=== PATIENT | male | born 1985 | race Caucasian/White ===

== ENCOUNTER 2016-05-21 16:46 | Emergency (ER) | payer SELFPAY ==
[~2016-05-21] VITALS: Ht 190.5 cm; Wt 136.1 kg
[2016-05-21] MEDS ORDERED: PARO-49 PO (16:58)
[2016-05-21] MEDS ORDERED: LTH450TCR PO (16:58)
[2016-05-21] MEDS ORDERED: NS IV 1000 ML 1,000 ML IV SCH (17:00)
[2016-05-21] MEDS ORDERED: KETOROLAC 30 MG/ML VIAL IVP ONE (17:00)
--- NOTE | 2016-05-21 17:02 | ED Back Pain ---
General Chief Complaint: Back Problems Stated Complaint: BACK PAIN Nursing Triage Note: LEFT SIDED MID BACK PAIN STARTING AT 0900 TODAY. HX OF KIDNEY STONES. Nursing Sepsis Screen: No Definite Risk Source of Information: Patient Exam Limitations: No Limitations History of Present Illness Time Seen by Provider: 17:01 Initial Comments to ER with left flank pain since this morning. Pain is in the left posterior flank and wraps around the left anterior lower abdomen. He has a history of kidney stones and this feels similar. No nausea or vomiting. No dysuria. No fevers or chills. Patient is formerly from [facility] and recently moved to [place]. Last kidney stone was in 2009. Timing/Duration: 12-24 Hours Severity: Moderate Associated Symptoms: denies symptoms Allergies and Home Medications Allergies Coded Allergies: No Known Drug Allergies (Unverified , 05/21/16) Home Medications [place] Carbonate 450 Mg Tab, 450 MG PO TID, (Reported) Paroxetine HCl 20 Mg Tablet, 20 MG PO DAILY, (Reported) Constitutional: see HPI, No chills, No fever EENTM: see HPI Respiratory: no symptoms reported Cardiovascular: no symptoms reported Genitourinary: no symptoms reported Musculoskeletal: no symptoms reported Skin: no symptoms reported Psychiatric/Neurological: No Symptoms Reported Past Kuvlpic-Zmzlpj-Cwgvih Hx Patient Social History Recent Foreign Travel: No Contact w/Someone Who Travel: No Recent Infectious Disease Expo: No Recent Hopitalizations: No Surgeries HX Surgeries: Yes Surgeries: Orthopedic Respiratory Hx Respiratory Disorders: No Cardiovascular Hx Cardiac Disorders: No Neurological Hx Neurological Disorders: No Reproductive System Hx Reproductive Disorders: No Genitourinary Hx Genitourinary Disorders: No Gastrointestinal Hx Gastrointestinal Disorders: No Musculoskeletal Hx Musculoskeletal Disorders: No HEENT HX ENT Disorders: No Cancer Hx Cancer: No Psychosocial Hx Psychiatric Problems: Yes Behavioral Health Disorders: Depression Physical Exam Vital Signs Vital Sign - Last 12Hours 05/21/16 16:50 Temp 98.0 Pulse 80 Resp 16 B/P (MAP) 144/84 Pulse Ox 96 Capillary Refill : Less Than 3 Seconds General Appearance: No Apparent Distress, WD/WN HEENT: PERRL/EOMI, TMs Normal Neck: Full Range of Motion, Normal Inspection Cardiovascular: Regular Rate, Rhythm, Normal Peripheral Pulses Respiratory: Normal Breath Sounds, No Accessory Muscle Use, No Respiratory Distress Gastrointestinal: Non Tender, Soft Extremity: Normal Capillary Refill, Normal Inspection Neurologic/Psychiatric: Alert, Oriented x3 Skin: Normal Color, Warm/Dry Progress/Results/Core Measures Results/Orders Lab Results Laboratory Tests Test 05/21/16 17:00 05/21/16 17:42 Range/Units White Blood Count 12.1 H 4.3-11.0 10^3/uL Red Blood Count 5.44 4.35-5.85 10^6/uL Hemoglobin 16.3 13.3-17.7 G/DL Hematocrit 49 40-54 % Mean Corpuscular Volume 89 80-99 FL Mean Corpuscular Hemoglobin 30 25-34 PG Mean Corpuscular Hemoglobin Concent 34 32-36 G/DL Red Cell Distribution Width 14.2 10.0-14.5 % Platelet Count 248 130-400 10^3/uL Mean Platelet Volume 10.6 H 7.4-10.4 FL Neutrophils (%) (Auto) 48 42-75 % Lymphocytes (%) (Auto) 38 12-44 % Monocytes (%) (Auto) 9 0-12 % Eosinophils (%) (Auto) 6 0-10 % Basophils (%) (Auto) 0 0-10 % Neutrophils # (Auto) 5.8 1.8-7.8 X 10^3 Lymphocytes # (Auto) 4.6 H 1.0-4.0 X 10^3 Monocytes # (Auto) 1.1 H 0.0-1.0 X 10^3 Eosinophils # (Auto) 0.7 H 0.0-0.3 10^3/uL Basophils # (Auto) 0.1 0.0-0.1 10^3/uL Sodium Level 141 135-145 MMOL/L Potassium Level 4.3 3.6-5.0 MMOL/L Chloride Level 108 H 98-107 MMOL/L Carbon Dioxide Level 22 21-32 MMOL/L Anion Gap 11 5-14 MMOL/L Blood Urea Nitrogen 10 7-18 MG/DL Creatinine 0.93 0.60-1.30 MG/DL Estimat Glomerular Filtration Rate > 60 BUN/Creatinine Ratio 11 Glucose Level 107 H 70-105 MG/DL Calcium Level 9.5 8.5-10.1 MG/DL Urine Color YELLOW Urine Clarity SLIGHTLY CLOUDY Urine pH 8 5-9 Urine Specific [place] 1.015 L 1.016-1.022 Urine Protein NEGATIVE NEGATIVE Urine Glucose (UA) NEGATIVE NEGATIVE Urine Ketones NEGATIVE NEGATIVE Urine Nitrite NEGATIVE NEGATIVE Urine Bilirubin NEGATIVE NEGATIVE Urine Urobilinogen NORMAL NORMAL MG/DL Urine Leukocyte Esterase 1+ H NEGATIVE Urine RBC (Auto) NEGATIVE NEGATIVE Urine RBC NONE /HPF Urine WBC NONE /HPF Urine Squamous Epithelial Cells NONE /HPF Urine Crystals NONE /LPF Urine Amorphous Sediment LARGE GINNY PHOSPHATE H /LPF Urine Bacteria NEGATIVE /HPF Urine Casts NONE /LPF Urine Mucus NEGATIVE /LPF Urine Culture Indicated NO Urine Opiates Screen NEGATIVE NEGATIVE Urine Oxycodone Screen NEGATIVE NEGATIVE Urine Methadone Screen NEGATIVE NEGATIVE Urine Propoxyphene Screen NEGATIVE NEGATIVE Urine Barbiturates Screen POSITIVE H NEGATIVE Ur Tricyclic Antidepressants Screen NEGATIVE NEGATIVE Urine Phencyclidine Screen NEGATIVE NEGATIVE Urine Amphetamines Screen NEGATIVE NEGATIVE Urine Methamphetamines Screen NEGATIVE NEGATIVE Urine Benzodiazepines Screen NEGATIVE NEGATIVE Urine Cocaine Screen NEGATIVE NEGATIVE Urine Cannabinoids Screen POSITIVE H NEGATIVE My Orders Orders - DELMY HOWARD APRN Ua Culture If Indicated (05/21/16 17:00) Cbc With Automated Diff (05/21/16 17:00) Saline Lock/Iv-Start (05/21/16 17:00) Basic Metabolic Panel (05/21/16 17:00) Ct Abd/Pelvis Wo(Kidney Stone) (05/21/16 17:00) Ns Iv 1000 Ml (Sodium Chloride 0.9%) (05/21/16 17:00) Ketorolac Injection (Toradol Injection) (05/21/16 17:00) Orphenadrine Injection (Norflex Injectio (05/21/16 17:45) Drug Screen Stat (Urine) (05/21/16 17:44) Medications Given in ED Current Medications Medications Dose Ordered Sig/Marquita Route Start Time Stop Time Status Last Admin Dose Admin Ketorolac Tromethamine 30 mg ONCE ONCE IVP 05/21/16 17:00 05/21/16 17:01 DC 05/21/16 17:14 30 MG Orphenadrine Citrate 60 mg ONCE ONCE IV 05/21/16 17:45 05/21/16 17:46 DC 05/21/16 17:49 60 MG Vital Signs/I&O Vital Sign - Last 12Hours 05/21/16 16:50 Temp 98.0 Pulse 80 Resp 16 B/P (MAP) 144/84 Pulse Ox 96 Blood Pressure Mean: 104 Diagnostic Imaging Diagonstic Imaging: Xray Comments NAME: MARC [facility] MED REC#: [id number] PT STATUS: REG ER : 1985 PHYSICIAN: DELMY HOWARD APRN ADMIT DATE: 05/21/16/ER Draft Date of Exam:05/21/16 CT ABD/PELVIS WO(KIDNEY STONE) PROCEDURE: CT urinary tract, rule out kidney stone. TECHNIQUE: Multiple contiguous axial images were obtained through the abdomen and pelvis without the use of intravenous contrast. DATE: May 21, 2016. COMPARISON: None. INDICATION: 30-year-old male, left lower back pain. FINDINGS: There are very mild linear opacities in the right middle lobe likely relating to mild atelectasis. The heart is not enlarged. There is no identified paracardial effusion. The liver is normal in size and contour. There are areas of relatively increased attenuation subjacent to the gallbladder fossa and ligamentum teres which likely relate to areas of relative focal fat sparing. The gallbladder is unremarkable in appearance. There is no intrahepatic or extrahepatic bile duct dilation. The main pancreatic duct is not abnormally dilated. The pancreatic parenchyma is unremarkable. The spleen is normal in size. The adrenal glands are unremarkable. There is a nonobstructing right renal stone, measuring 4 mm in size, on axial image 77. There is no identified ureteral stone. The urinary bladder is unremarkable in appearance. The intestinal tract is not distended. The appendix is best seen on axial image 109 and adjacent sequential images. There is no evidence of acute appendicitis. There is no free intraperitoneal air. There is no drainable fluid collection. There is no free pelvic fluid. There is no identified abnormally enlarged lymph node within the abdomen or pelvis specifically meeting CT size criteria for adenopathy. There are subcentimeter short axis retroperitoneal lymph nodes of unclear etiology or significance. There is a left hip prosthesis. There is no identified acute bony abnormality. IMPRESSION: CT abdomen and pelvis: 1. Nonobstructing right renal stone, measuring 4 mm in size. No ureteral stone or hydronephrosis. 2. No identified acute abnormality within the abdomen or pelvis. Dictated on workstation # [id number] Dict: 05/21/16 1718 Trans: 05/21/16 1726 [facility] [id number] Interpreted by: RADHA HERNANDEZ MD Electronically signed by: Departure Impression Impression: Primary Impression: Back strain Disposition: 01 HOME, SELF-CARE Condition: Stable Departure-Patient Inst. Decision time for Depature: 18:05 Referrals: SHIRIN CHIN (PCP/Family) Primary Care Physician Patient Instructions: Low Back Pain (DC) Add. Discharge Instructions: Follow-up with your doctor next week Return to ER for any worsening such as fevers or intolerable pain Medications as directed All discharge instructions reviewed with patient and/or family. Voiced understanding. Scripts Cyclobenzaprine HCl (Cyclobenzaprine HCl) 5 Mg Tablet 5 MG PO TID Y for PAIN-MILD TO MODERATE, #14 TAB Prov: DELMY HOWARD APRN 05/21/16 Naproxen (Naprosyn) 500 Mg Tablet 500 MG PO BID Y for PAIN-MODERATE, #30 TAB Prov: DELMY HOWARD APRN 05/21/16 DELMY HOWARD APRN May 21, 2016 17:02
[2016-05-21 17:09] LABS: BASOPHILS # (AUTO) 0.1 10^3/uL (0.0-0.1); BASOPHILS % (AUTO) 0 % (0-10); EOSINOPHILS # (AUTO) 0.7 10^3/uL (0.0-0.3); EOSINOPHILS % (AUTO) 6 % (0-10); LYMPHOCYTES # (AUTO) 4.6 X 10^3 (1.0-4.0); LYMPHOCYTES % (AUTO) 38 % (12-44); MEAN CORPUSCULAR HEMOGLOBIN 30 PG (25-34); MEAN CORPUSCULAR HGB CONC 34 G/DL (32-36); MEAN CORPUSCULAR VOLUME 89 FL (80-99); MEAN PLATELET VOLUME 10.6 FL (7.4-10.4); MONOCYTES # (AUTO) 1.1 X 10^3 (0.0-1.0); MONOCYTES % (AUTO) 9 % (0-12); NEUTROPHILS # (AUTO) 5.8 X 10^3 (1.8-7.8); NEUTROPHILS % (AUTO) 48 % (42-75); PLATELET COUNT 248 10^3/uL (130-400); RED BLOOD COUNT 5.44 10^6/uL (4.35-5.85); RED CELL DISTRIBUTION WIDTH 14.2 % (10.0-14.5); WHITE BLOOD COUNT 12.1 10^3/uL (4.3-11.0)
[2016-05-21 17:19] LABS: ANION GAP 11 MMOL/L (5-14); BLOOD UREA NITROGEN 10 MG/DL (7-18); BUN/CREATININE RATIO 11; CALCIUM 9.5 MG/DL (8.5-10.1); CARBON DIOXIDE 22 MMOL/L (21-32); CHLORIDE 108 MMOL/L (98-107); CREATININE SERUM 0.93 MG/DL (0.60-1.30); GFR ESTIMATED > 60; GLUCOSE 107 MG/DL (70-105); POTASSIUM 4.3 MMOL/L (3.6-5.0); SODIUM 141 MMOL/L (135-145)
--- NOTE | 2016-05-21 17:26 | Diagnostic Imaging Report ---
PROCEDURE: CT urinary tract, rule out kidney stone. TECHNIQUE: Multiple contiguous axial images were obtained through the abdomen and pelvis without the use of intravenous contrast. DATE: May 21, 2016. COMPARISON: None. INDICATION: 30-year-old male, left lower back pain. FINDINGS: There are very mild linear opacities in the right middle lobe likely relating to mild atelectasis. The heart is not enlarged. There is no identified paracardial effusion. The liver is normal in size and contour. There are areas of relatively increased attenuation subjacent to the gallbladder fossa and ligamentum teres which likely relate to areas of relative focal fat sparing. The gallbladder is unremarkable in appearance. There is no intrahepatic or extrahepatic bile duct dilation. The main pancreatic duct is not abnormally dilated. The pancreatic parenchyma is unremarkable. The spleen is normal in size. The adrenal glands are unremarkable. There is a nonobstructing right renal stone, measuring 4 mm in size, on axial image 77. There is no identified ureteral stone. The urinary bladder is unremarkable in appearance. The intestinal tract is not distended. The appendix is best seen on axial image 109 and adjacent sequential images. There is no evidence of acute appendicitis. There is no free intraperitoneal air. There is no drainable fluid collection. There is no free pelvic fluid. There is no identified abnormally enlarged lymph node within the abdomen or pelvis specifically meeting CT size criteria for adenopathy. There are subcentimeter short axis retroperitoneal lymph nodes of unclear etiology or significance. There is a left hip prosthesis. There is no identified acute bony abnormality. IMPRESSION: CT abdomen and pelvis: 1. Nonobstructing right renal stone, measuring 4 mm in size. No ureteral stone or hydronephrosis. 2. No identified acute abnormality within the abdomen or pelvis. Dictated by: Dictated on workstation # [id number]
[2016-05-21] MEDS ORDERED: ORPHENADRINE 60 MG/2 ML (NORFLEX) AMP IV ONE (17:45)
[2016-05-21 17:50] LABS: BILIRUBIN,URINE NEGATIVE (NEGATIVE); KETONES,URINE NEGATIVE (NEGATIVE); LEUKOCYTE ESTERASE ,URINE 1+ (NEGATIVE); NITRITE,URINE NEGATIVE (NEGATIVE); PH,URINE 8 (5-9); PROTEIN,URINE NEGATIVE (NEGATIVE); UROBILINOGEN,URINE NORMAL (NORMAL)
[2016-05-21] MEDS ORDERED: CYCL5TAB PO (18:06)
[2016-05-21] MEDS ORDERED: NAPR500T PO (18:06)
[2016-05-21 18:10] VITALS: BP 144/84
== END 2016-05-21 18:10 | disposition home or self-care (01) ==
LOC: ER 16:49
DX: S39.012A Strain of muscle, fascia and tendon of lower back, initial encounter (principal); N20.0 Calculus of kidney; Z96.642 Presence of left artificial hip joint; X58.XXXA Exposure to other specified factors, initial encounter; Y99.8 Other external cause status
CPT/HCPCS: 36415; 74176; 80048; 80306; 81000; 85025; 96361; 96374; 96375

== ENCOUNTER 2020-04-10 19:33 | Emergency (ER) | payer SELFPAY ==
[~2020-04-10] VITALS: Ht 195.6 cm; Wt 149.7 kg
[~2020-04-10 19:33] MED LIST: CYCL5TAB PO; LTH450TCR PO; NAPR-1071 PO; PARO-49 PO
[2020-04-10 19:54] VITALS: BP 147/91
[2020-04-10] MEDS ORDERED: oxyCODONE/APAP 5/325MG (PERCOCET 5) TABLET PO ONE (20:15)
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
== END 2020-04-10 20:40 | disposition home or self-care (01) ==
LOC: EDUNIT# 19:33 → ER FS 19:34
DX: G89.29 Other chronic pain (principal); F17.210 Nicotine dependence, cigarettes, uncomplicated; F32.9 Major depressive disorder, single episode, unspecified
CPT/HCPCS: 99283

== ENCOUNTER 2020-06-11 01:17 | Emergency (ER) | payer SELFPAY ==
[~2020-06-11] VITALS: Ht 195.6 cm; Wt 141.9 kg
[2020-06-11] MEDS ORDERED: fentaNYL INJ 100 MCG/2 ML AMP IVP ONE (01:45)
[2020-06-11] MEDS ORDERED: KETOROLAC 30 MG/ML VIAL IVP ONE (01:45)
[2020-06-11] MEDS ORDERED: ONDANSETRON 4 MG/2 ML (SDV) Z0FRAN IVP ONE (01:45)
[2020-06-11] MEDS ORDERED: NS IV 1000 ML 1,000 ML IV SCH (01:45)
[2020-06-11 01:56] LABS: BASOPHILS % (AUTO) 0 % (0-10); EOSINOPHILS % (AUTO) 3 % (0-10); HEMATOCRIT 44 % (40-54); LYMPHOCYTES % (AUTO) 29 % (12-44); MEAN CORPUSCULAR HEMOGLOBIN 31 PG (25-34); MEAN CORPUSCULAR HGB CONC 34 G/DL (32-36); MEAN CORPUSCULAR VOLUME 91 FL (80-99); MEAN PLATELET VOLUME 10.4 FL (7.4-10.4); MONOCYTES % (AUTO) 7 % (0-12); NEUTROPHILS # (AUTO) 7.3 X 10^3 (1.8-7.8); NEUTROPHILS % (AUTO) 61 % (42-75); PLATELET COUNT 266 10^3/uL (130-400); WHITE BLOOD COUNT 11.9 10^3/uL (4.3-11.0)
[2020-06-11 01:57] LABS: BASOPHILS # (AUTO) 0.1 10^3/uL (0.0-0.1); EOSINOPHILS # (AUTO) 0.3 10^3/uL (0.0-0.3); LYMPHOCYTES # (AUTO) 3.5 X 10^3 (1.0-4.0); MONOCYTES # (AUTO) 0.8 X 10^3 (0.0-1.0)
[2020-06-11 02:14] LABS: ALANINE AMINOTRANSFERASE 51 U/L (0-55); ALBUMIN 4.6 GM/DL (3.2-4.5); ALKALINE PHOSPHATASE 117 U/L (40-136); BILIRUBIN,TOTAL 0.2 MG/DL (0.1-1.0); BUN/CREATININE RATIO 15; CALCIUM 9.8 MG/DL (8.5-10.1); CARBON DIOXIDE 20 MMOL/L (21-32); CHLORIDE 102 MMOL/L (98-107); CREATININE SERUM 0.72 MG/DL (0.60-1.30); GFR ESTIMATED > 60; GLUCOSE 139 MG/DL (70-105); POTASSIUM 3.9 MMOL/L (3.6-5.0); SODIUM 137 MMOL/L (135-145); TOTAL PROTEIN 7.6 GM/DL (6.4-8.2)
[2020-06-11 02:15] LABS: BACTERIA,URINE NEGATIVE /HPF; BILIRUBIN,URINE NEGATIVE (NEGATIVE); CLARITY,URINE CLEAR; COLOR,URINE YELLOW; GLUCOSE, URINE (UA) NEGATIVE (NEGATIVE); KETONES,URINE NEGATIVE (NEGATIVE); LEUKOCYTE ESTERASE ,URINE NEGATIVE (NEGATIVE); NITRITE,URINE NEGATIVE (NEGATIVE); PROTEIN,URINE NEGATIVE (NEGATIVE); RBC,URINE 25-50 /HPF; RENAL EPITHELIAL CELLS,URINE 0-2 /HPF
[2020-06-11] MEDS ORDERED: ONDA4TAB11 PO (02:30)
[2020-06-11] MEDS ORDERED: OXYC1TAB87 PO (02:30)
[2020-06-11] MEDS ORDERED: TMSL.4C PO (02:30)
--- NOTE | 2020-06-11 02:30 | ED General ---
General Chief Complaint: Abdominal/GI Problems Stated Complaint: POSS KIDNEY STONES Nursing Triage Note: Pt states hx of kidney stones, thinks he has another one, pain to left flank area Nursing Sepsis Screen: No Definite Risk Source of Information: Patient History of Present Illness Date Seen by Provider: June 11, 2020 Time Seen by Provider: 01:20 Initial Comments Patient is a 34-year-old male with history of kidney stones who presents with acute left sided flank pain starting several hours prior to ED arrival radiating to left lower quadrant. Pain is continuous, waxes and wane and described as moderate to severe. It is dull, nonmigratory and does not worsen with position change or movement. It is not relieved with rest. Reports nausea without vomiting. No fever chills or sweats. No urinary frequency urgency or burning. No constipation or diarrhea. No other acute symptoms or complaints. Timing/Duration: 4-6 Hours Severity: Severe Modifying Factors: improves with Other Associated Systoms: Other Allergies and Home Medications Allergies Coded Allergies: No Known Drug Allergies (Unverified , 05/21/16) Home Medications Cyclobenzaprine HCl 5 Mg Tablet, 5 MG PO TID PRN for PAIN-MILD TO MODERATE Prescribed by: DELMY HOWARD on 05/21/16 1806 [place] Carbonate 450 Mg Tab, 450 MG PO TID, (Reported) Naproxen 500 Mg Tablet, 500 MG PO BID PRN for PAIN-MODERATE Prescribed by: DELMY HOWARD on 05/21/16 1806 Paroxetine HCl 20 Mg Tablet, 20 MG PO DAILY, (Reported) Patient Home Medication List Home Medication List Reviewed: Yes Review of Systems Review of Systems Constitutional: see HPI EENTM: see HPI Respiratory: see HPI Cardiovascular: see HPI Gastrointestinal: see HPI Genitourinary: see HPI Musculoskeletal: see HPI Skin: see HPI Hematologic/Lymphatic: See HPI Immunological/Allergic: see HPI All Other Systems Reviewed Negative Unless Noted: Yes Past Wkoovjn-Ajmuab-Goccve Hx Past Med/Social Hx: Reviewed Nursing Past Med/Soc Hx Patient Social History Alcohol Use: Denies Use Drug of Choice: POT Type Used: Cigarettes 2nd Hand Smoke Exposure: No Recent Infectious Disease Expo: No Recent Hopitalizations: No Seasonal Allergies Seasonal Allergies: No Past Medical History Surgeries: Yes (LEFT HIP REPLACEMENT) Orthopedic Respiratory: No Cardiac: Yes Hypertension Neurological: No Reproductive Disorders: No Genitourinary: Yes Kidney Stones Gastrointestinal: No Musculoskeletal: Yes (LEFT HIP) Endocrine: No HEENT: No Cancer: No Psychosocial: Yes Depression Physical Exam Vital Signs Vital Signs - First Documented 06/11/20 01:28 Temp 36.3 Pulse 108 Resp 16 B/P (MAP) 187/104 (131) Pulse Ox 99 O2 Delivery Room Air Capillary Refill : Less Than 3 Seconds Height, Weight, BMI Height: 6'3.00" Weight: 300lbs. oz. 136.503730bf; 37.00 BMI Method:Stated General Appearance: Anxious, Moderate Distress Eyes: Bilateral Eye Normal Inspection, Bilateral Eye PERRL HEENT: PERRL/EOMI, Moist Mucous Membranes Neck: Full Range of Motion, Supple Respiratory: Lungs Clear Cardiovascular: Regular Rate, Rhythm Gastrointestinal: Soft Back: CVA Tenderness (L) Extremity: Normal Capillary Refill, Non Tender, No Calf Tenderness Neurologic/Psychiatric: Alert, Oriented x3, No Motor/Sensory Deficits Skin: Normal Color Lymphatic: No Adenopathy Focused Exam Sepsis Stage: Ruled Out Progress/Results/Core Measures Suspected Sepsis Recent Fever Within 48 Hours: No Infection Criteria Present: None New/Unexplained Altered Menta: No Sepsis Screen: No Definite Risk SIRS Temperature: Pulse: 108 Respiratory Rate: 16 Laboratory Tests 06/11/20 01:50: White Blood Count 11.9H Blood Pressure 187 /104 Mean: 131 Laboratory Tests 06/11/20 01:50: Creatinine 0.72, Platelet Count 266, Total Bilirubin 0.2 Results/Orders Lab Results Laboratory Tests Test 06/11/20 01:50 06/11/20 02:05 Range/Units White Blood Count 11.9 H 4.3-11.0 10^3/uL Red Blood Count 4.86 4.35-5.85 10^6/uL Hemoglobin 15.0 13.3-17.7 G/DL Hematocrit 44 40-54 % Mean Corpuscular Volume 91 80-99 FL Mean Corpuscular Hemoglobin 31 25-34 PG Mean Corpuscular Hemoglobin Concent 34 32-36 G/DL Red Cell Distribution Width 13.1 10.0-14.5 % Platelet Count 266 130-400 10^3/uL Mean Platelet Volume 10.4 7.4-10.4 FL Immature Granulocyte % (Auto) 0 % Neutrophils (%) (Auto) 61 42-75 % Lymphocytes (%) (Auto) 29 12-44 % Monocytes (%) (Auto) 7 0-12 % Eosinophils (%) (Auto) 3 0-10 % Basophils (%) (Auto) 0 0-10 % Neutrophils # (Auto) 7.3 1.8-7.8 X 10^3 Lymphocytes # (Auto) 3.5 1.0-4.0 X 10^3 Monocytes # (Auto) 0.8 0.0-1.0 X 10^3 Eosinophils # (Auto) 0.3 0.0-0.3 10^3/uL Basophils # (Auto) 0.1 0.0-0.1 10^3/uL Immature Granulocyte # (Auto) 0.0 0.0-0.1 10^3/uL Sodium Level 137 135-145 MMOL/L Potassium Level 3.9 3.6-5.0 MMOL/L Chloride Level 102 98-107 MMOL/L Carbon Dioxide Level 20 L 21-32 MMOL/L Anion Gap 15 H 5-14 MMOL/L Blood Urea Nitrogen 11 7-18 MG/DL Creatinine 0.72 0.60-1.30 MG/DL Estimat Glomerular Filtration Rate > 60 BUN/Creatinine Ratio 15 Glucose Level 139 H 70-105 MG/DL Calcium Level 9.8 8.5-10.1 MG/DL Corrected Calcium 8.5-10.1 MG/DL Total Bilirubin 0.2 0.1-1.0 MG/DL Aspartate Amino Transf (AST/SGOT) 28 5-34 U/L Alanine Aminotransferase (ALT/SGPT) 51 0-55 U/L Alkaline Phosphatase 117 40-136 U/L Total Protein 7.6 6.4-8.2 GM/DL Albumin 4.6 H 3.2-4.5 GM/DL Urine Color YELLOW Urine Clarity CLEAR Urine pH 6.0 5-9 Urine Specific [place] 1.020 1.016-1.022 Urine Protein NEGATIVE NEGATIVE Urine Glucose (UA) NEGATIVE NEGATIVE Urine Ketones NEGATIVE NEGATIVE Urine Nitrite NEGATIVE NEGATIVE Urine Bilirubin NEGATIVE NEGATIVE Urine Urobilinogen 0.2 < = 1.0 MG/DL Urine Leukocyte Esterase NEGATIVE NEGATIVE Urine RBC (Auto) 1+ H NEGATIVE Urine RBC 25-50 H /HPF Urine WBC NONE /HPF Urine Squamous Epithelial Cells NONE /HPF Urine Renal Epithelial Cells 0-2 /HPF Urine Crystals NONE /LPF Urine Bacteria NEGATIVE /HPF Urine Casts PRESENT /LPF Urine Hyaline Casts 2-5 H /LPF Urine Coarse Granular Casts 0-2 H /LPF Urine Mucus NEGATIVE /LPF Urine Culture Indicated NO My Orders Orders - SMITHA TOVAR DO Cbc With Automated Diff (06/11/20 01:31) Comprehensive Metabolic Panel (06/11/20 01:31) Ua Culture If Indicated (06/11/20 01:31) Ct Abdomen/Pelvis Wo (06/11/20 01:31) Fentanyl Inj (Sublimaze Injection) (06/11/20 01:45) Ondansetron Injection (Zofran Injectio (06/11/20 01:45) Ketorolac Injection (Toradol Injection) (06/11/20 01:45) Ns Iv 1000 Ml (Sodium Chloride 0.9%) (06/11/20 01:45) Medications Given in ED Current Medications Medications Dose Ordered Sig/Marquita Route Start Time Stop Time Status Last Admin Dose Admin Fentanyl Citrate 100 mcg ONCE ONCE IVP 06/11/20 01:45 06/11/20 01:46 DC 06/11/20 01:53 100 MCG Ketorolac Tromethamine 30 mg ONCE ONCE IVP 06/11/20 01:45 06/11/20 01:46 DC 06/11/20 01:53 30 MG Ondansetron HCl 4 mg ONCE ONCE IVP 06/11/20 01:45 06/11/20 01:46 DC 06/11/20 01:53 4 MG Vital Signs/I&O 06/11/20 01:28 Temp 36.3 Pulse 108 Resp 16 B/P (MAP) 187/104 (131) Pulse Ox 99 O2 Delivery Room Air Capillary Refill : Less Than 3 Seconds Blood Pressure Mean: 131 Departure Communication (Admissions) CT abdomen pelvis without contrast. 4 mm left UPJ stone with mild hydronephrosis. Imaging and lab reviewed. Repeat pain medication given. Significant improvem ent with treatment. We will continue supportive care with follow-up with the urologist. Return precautions reviewed. Impression Primary Impression: Acute left flank pain Additional Impression: Ureterolithiasis Disposition: HOME, SELF-CARE Condition: Stable Departure-Patient Inst. Decision time for Depature: 02:28 Referrals: SHIRIN CHIN (PCP/Family) Primary Care Physician Patient Instructions: Kidney Stones (DC) Add. Discharge Instructions: Please increase fluids and take newly prescribed medications as directed. Strain your urine for passage of stone. Follow-up with your PCP and local urologist in 3 to 5 days for reevaluation. Return to the ED if new or worsening symptoms. All discharge instructions reviewed with patient and/or family. Voiced understanding. Scripts Ondansetron (Ondansetron Odt) 4 Mg Tab.rapdis 4 MG PO Q6H, #10 TAB Prov: SMITHA TOVAR DO 06/11/20 Tamsulosin HCl (Flomax) 0.4 Mg Cap 0.4 MG PO Q6H for 10 Days, CAP Prov: SMITHA TOVAR DO 06/11/20 Oxycodone HCl/Acetaminophen (Percocet 5-325 mg Tablet) 1 Each Tablet 1 TAB PO Q4H for PAIN-MODERATE MDD 6 TABS for 7 Days, #10 TAB Prov: SMITHA TOVAR DO 06/11/20 SMIHTA TOVAR DO June 11, 2020 02:30
[2020-06-11] MEDS ORDERED: morphine INJ 10 MG/ML 1ML (SYR OR VIAL) IVP STA (02:31)
[2020-06-11] MEDS ORDERED: RX-ONDANSETRON 4 MG ODT (ZOFRAN) PPK #4 PO STA (02:32)
[2020-06-11 02:41] VITALS: BP 157/113
[2020-06-11] MEDS ORDERED: RX-OXYCODONE/APAP 5-325 MG #4 TAB PK PO PRN (02:45)
--- NOTE | 2020-06-11 06:56 | Diagnostic Imaging Report ---
EXAM: CT abdomen and pelvis without intravenous contrast. All CT scans use one or more of the following dose optimizing techniques: automated exposure control, MA and/or KvP adjustment based on patient size and exam type or iterative reconstruction. INDICATION: Left flank pain. History of kidney stones. Comparison with 05/21/2016. FINDINGS: There is a 7 mm calculus lower pole calyx of the left kidney. There is also an obstructive calculus in the proximal left ureter measuring 4 mm. There is moderate hydronephrosis of the left kidney. The left distal ureter is decompressed. Right kidney and ureter appear normal. There is no perinephric fluid. The lung bases are clear. Liver, gallbladder, and bile ducts are normal. Pancreas and spleen are normal. There is a 1.6 cm fatty lesion in the left adrenal gland. Bowel gas pattern normal. No free air or free fluid. IMPRESSION: 1. There is a 4 mm obstructive stone in the proximal left ureter causing moderate hydronephrosis. Additional calculus in the lower pole calyx on the left measuring 7 mm. 2. Incidentally noted is a 1.6 cm fatty lesion in the left adrenal gland likely representing adrenal adenoma. These findings are concordant with the preliminary report. Dictated by: Dictated on workstation # [id number]
== END 2020-06-11 02:41 | disposition home or self-care (01) ==
LOC: EDUNIT# 01:17 → ER FS 01:20
DX: N13.2 Hydronephrosis with renal and ureteral calculous obstruction (principal); I10 Essential (primary) hypertension; F32.9 Major depressive disorder, single episode, unspecified; Z79.899 Other long term (current) drug therapy
CPT/HCPCS: 36415; 74176; 80053; 81000; 85025

== ENCOUNTER 2020-06-18 16:02 | Emergency (ER) | payer SELFPAY ==
[~2020-06-18] VITALS: Ht 193 cm; Wt 139.0 kg
[~2020-06-18 16:02] MED LIST changes: +ONDA4TAB11 PO; +OXYC1TAB87 PO; +TMSL.4C PO
[2020-06-18 16:06] VITALS: BP 144/97
[2020-06-18] MEDS ORDERED: morphine INJ 10 MG/ML 1ML (SYR OR VIAL) IVP STA (16:11)
[2020-06-18] MEDS ORDERED: ONDANSETRON 4 MG/2 ML (SDV) Z0FRAN IVP ONE (16:15)
[2020-06-18] MEDS ORDERED: KETOROLAC 30 MG/ML VIAL IVP ONE (16:15)
[2020-06-18 16:51] LABS: BASOPHILS % (AUTO) 0 % (0-10); EOSINOPHILS % (AUTO) 1 % (0-10); HEMATOCRIT 47 % (40-54); HEMOGLOBIN 15.6 G/DL (13.3-17.7); LYMPHOCYTES % (AUTO) 21 % (12-44); MEAN CORPUSCULAR HEMOGLOBIN 32 PG (25-34); MEAN CORPUSCULAR HGB CONC 33 G/DL (32-36); MEAN CORPUSCULAR VOLUME 96 FL (80-99); MEAN PLATELET VOLUME 11.3 FL (7.4-10.4); MONOCYTES % (AUTO) 7 % (0-12); NEUTROPHILS # (AUTO) 7.5 X 10^3 (1.8-7.8); NEUTROPHILS % (AUTO) 71 % (42-75); PLATELET COUNT 221 10^3/uL (130-400); WHITE BLOOD COUNT 10.7 10^3/uL (4.3-11.0)
[2020-06-18 16:52] LABS: EOSINOPHILS # (AUTO) 0.2 10^3/uL (0.0-0.3); LYMPHOCYTES # (AUTO) 2.3 X 10^3 (1.0-4.0); MONOCYTES # (AUTO) 0.7 X 10^3 (0.0-1.0)
--- NOTE | 2020-06-18 16:54 | Diagnostic Imaging Report ---
PROCEDURE: CT abdomen and pelvis without contrast. TECHNIQUE: Multiple contiguous axial images were obtained through the abdomen and pelvis without the use of intravenous contrast. Auto Exposure Controls were utilized during the CT exam to meet ALARA standards for radiation dose reduction. INDICATION: Left abdominal pain. COMPARISON: 06/11/2020. FINDINGS: There is an approximately 0.3 cm subpleural nodule seen within the anterior right middle lobe with a similar nodule along the major fissure more posteriorly in the right lung. Low-density is seen throughout the liver indicating fatty infiltration. No focal gallbladder, pancreatic, right adrenal gland, or splenic abnormality is identified. A low density 1.5 cm nodule in the left adrenal gland likely represents an adenoma. Unenhanced images of the kidneys reveal several stones in the lower pole of the left kidney reaching 0.6 cm in size. There is no evidence of hydronephrosis. There is artifact in the pelvis from the left hip prosthesis; however, there does appear to be an approximately 0.3 cm calculus at the left ureterovesical junction which may protrude into the bladder lumen. The appendix has a normal appearance. There is no evidence of free fluid within the abdomen or pelvis. No pathologically enlarged adenopathy is seen. There is a moderate amount of stool within the rectum. IMPRESSION: Left nephrolithiasis with a 0.3 cm calculus at the left ureteropelvic junction. Note is also made of hepatic steatosis with several tiny nodules in the right lung base which could be related to previous granulomatous exposure. Correlation with other health risk factors would be useful. Dictated by: Dictated on workstation # [id number]
[2020-06-18 16:58] LABS: BUN/CREATININE RATIO 18; CALCIUM 9.9 MG/DL (8.5-10.1); CARBON DIOXIDE 23 MMOL/L (21-32); CHLORIDE 101 MMOL/L (98-107); CREATININE SERUM 0.76 MG/DL (0.60-1.30); GFR ESTIMATED > 60; GLUCOSE 93 MG/DL (70-105); POTASSIUM 5.5 MMOL/L (3.6-5.0); SODIUM 136 MMOL/L (135-145)
--- NOTE | 2020-06-18 17:08 | ED GU-Female ---
General Chief Complaint: - Urinary Stated Complaint: LT SIDE/LOWER BACK PAIN Nursing Triage Note: PT HERE FOR KIDNEY STONE THAT HE WAS SEEN FOR IN THE ED LAST WEEK. HE REPORTS HE HASNT FOLLOWED UP AND HADNT BEEN ABLE TO MAKE IT OUT OF TOWN TO THE DR. YET SO HE HAS RETURNED TO ER. Nursing Sepsis Screen: No Definite Risk Source: patient Exam Limitations: no limitations History of Present Illness Date Seen by Provider: June 18, 2020 Time Seen by Provider: 16:00 Initial Comments Patient is a 34-year-old male with history of kidney stones who was evaluated in this emergency department 1 week ago with left flank pain. Pain is dull aching nonradiating nonmigratory is continuous waxes and wanes and is rated moderate to severe. There are no palliative or provocative features. He was diagnosed with a kidney stone and was instructed to follow-up with his PCP and urologist. Patient is continue to take Flomax and pain medication but has had increased pain in the left groin this morning. Reports nausea without vomiting. No urinary frequency urgency burning dysuria or hematuria. No testicular pain or tenderness. Timing/Duration: other Severity/Quality: other Location: other Radiation: urethral Activities at Onset: other Sexual [place] History: other Modifying Factors: Improves With Other Associated Symptoms: other Allergies and Home Medications Allergies Coded Allergies: No Known Drug Allergies (Unverified , 05/21/16) Home Medications Cyclobenzaprine HCl 5 Mg Tablet, 5 MG PO TID PRN for PAIN-MILD TO MODERATE Prescribed by: DELMY HOWARD on 05/21/161805 [place] Carbonate 450 Mg Tab, 450 MG PO TID, (Reported) Naproxen 500 Mg Tablet, 500 MG PO BID PRN for PAIN-MODERATE Prescribed by: DELMY HOWARD on 05/21/161805 Ondansetron 4 Mg Tab.rapdis, 4 MG PO Q6H Prescribed by: SMITHA TOVAR on 06/11/20229 Oxycodone HCl/Acetaminophen 1 Each Tablet, 1 TAB PO Q4H Prescribed by: SMITHA TOVAR on 06/11/20229 Paroxetine HCl 20 Mg Tablet, 20 MG PO DAILY, (Reported) Tamsulosin HCl 0.4 Mg Cap, 0.4 MG PO Q6H Prescribed by: SMITHA TOVAR on 06/11/20229 Patient Home Medication List Home Medication List Reviewed: Yes Review of Systems Review of Systems Constitutional: see HPI EENTM: see HPI Respiratory: see HPI Cardiovascular: chest pain Gastrointestinal: see HPI Genitourinary: see HPI Musculoskeletal: see HPI Skin: see HPI Psychiatric/Neurological: See HPI Endocrine: See HPI Hematologic/Lymphatic: See HPI All Other Systemes Reviewed Negative Unless Noted: Yes Past Cvhknvk-Kcrxgs-Yroghf Hx Past Med/Social Hx: Reviewed Nursing Past Med/Soc Hx Patient Social History Alcohol Use: Denies Use Drug of Choice: POT Type Used: Cigarettes 2nd Hand Smoke Exposure: No Recent Infectious Disease Expo: No Recent Hopitalizations: No Seasonal Allergies Seasonal Allergies: No Past Medical History Surgeries: Yes (LEFT HIP REPLACEMENT) Orthopedic Respiratory: No Cardiac: Yes Hypertension Neurological: No Reproductive Disorders: No Genitourinary: Yes Kidney Stones Gastrointestinal: No Musculoskeletal: Yes (LEFT HIP) Endocrine: No HEENT: No Cancer: No Psychosocial: Yes Depression Physical Exam Vital Signs Vital Signs - First Documented 06/18/20 16:06 Temp 36.8 Pulse 103 Resp 20 B/P (MAP) 144/97 (113) Pulse Ox 100 O2 Delivery Room Air Capillary Refill : Less Than 3 Seconds Height, Weight, BMI Height: 6'3.00" Weight: 300lbs. oz. 136.114168lg; 37.00 BMI Method:Stated General Appearance: moderate distress HEENT: PERRL/EOMI, pharynx normal Neck: non-tender, full range of motion, supple Cardiovascular: normal peripheral pulses, regular rate, rhythm Respiratory: lungs clear Gastrointestinal: soft Back: normal inspection, no CVA tenderness, no vertebral tenderness Extremities: normal range of motion Neurologic/Psychiatric: alert, normal mood/affect, oriented x 3 Focused Exam Sepsis Stage: Ruled Out Progress/Results/Core Measures Suspected Sepsis Recent Fever Within 48 Hours: No Infection Criteria Present: None New/Unexplained Altered Menta: No Sepsis Screen: No Definite Risk SIRS Temperature: Pulse: 103 Respiratory Rate: 20 Laboratory Tests 06/18/20 16:28: White Blood Count 10.7 Blood Pressure 144 /97 Mean: 113 Laboratory Tests 06/18/20 16:28: Creatinine 0.76, Platelet Count 221 Results/Orders Lab Results Laboratory Tests Test 06/18/20 16:28 Range/Units White Blood Count 10.7 4.3-11.0 10^3/uL Red Blood Count 4.92 4.35-5.85 10^6/uL Hemoglobin 15.6 13.3-17.7 G/DL Hematocrit 47 40-54 % Mean Corpuscular Volume 96 80-99 FL Mean Corpuscular Hemoglobin 32 25-34 PG Mean Corpuscular Hemoglobin Concent 33 32-36 G/DL Red Cell Distribution Width 12.7 10.0-14.5 % Platelet Count 221 130-400 10^3/uL Mean Platelet Volume 11.3 H 7.4-10.4 FL Immature Granulocyte % (Auto) 0 % Neutrophils (%) (Auto) 71 42-75 % Lymphocytes (%) (Auto) 21 12-44 % Monocytes (%) (Auto) 7 0-12 % Eosinophils (%) (Auto) 1 0-10 % Basophils (%) (Auto) 0 0-10 % Neutrophils # (Auto) 7.5 1.8-7.8 X 10^3 Lymphocytes # (Auto) 2.3 1.0-4.0 X 10^3 Monocytes # (Auto) 0.7 0.0-1.0 X 10^3 Eosinophils # (Auto) 0.2 0.0-0.3 10^3/uL Basophils # (Auto) 0.0 0.0-0.1 10^3/uL Immature Granulocyte # (Auto) 0.0 0.0-0.1 10^3/uL Sodium Level 136 135-145 MMOL/L Potassium Level 5.5 H 3.6-5.0 MMOL/L Chloride Level 101 98-107 MMOL/L Carbon Dioxide Level 23 21-32 MMOL/L Anion Gap 12 5-14 MMOL/L Blood Urea Nitrogen 14 7-18 MG/DL Creatinine 0.76 0.60-1.30 MG/DL Estimat Glomerular Filtration Rate > 60 BUN/Creatinine Ratio 18 Glucose Level 93 70-105 MG/DL Calcium Level 9.9 8.5-10.1 MG/DL My Orders Orders - SMITHA TOVAR DO Cbc With Automated Diff (06/18/20 16:11) Basic Metabolic Panel (06/18/20 16:11) Urinalysis (06/18/20 16:11) Ct Abdomen/Pelvis Wo (06/18/20 16:11) Morphine Injection (Morphine Injection (06/18/20 16:11) Ondansetron Injection (Zofran Injectio (06/18/20 16:15) Ketorolac Injection (Toradol Injection) (06/18/20 16:15) Medications Given in ED Current Medications Medications Dose Ordered Sig/Maruqita Route Start Time Stop Time Status Last Admin Dose Admin Ketorolac Tromethamine 30 mg ONCE ONCE IVP 06/18/20 16:15 06/18/20 16:16 DC 06/18/20 16:18 30 MG Ondansetron HCl 4 mg ONCE ONCE IVP 06/18/20 16:15 06/18/20 16:16 DC 06/18/20 16:18 4 MG Vital Signs/I&O 06/18/20 06/18/20 06/18/20 16:06 16:18 16:18 Temp 36.8 36.8 36.8 Pulse 103 Resp 20 B/P (MAP) 144/97 (113) Pulse Ox 100 O2 Delivery Room Air Capillary Refill : Less Than 3 Seconds Blood Pressure Mean: 113 Departure Communication (Admissions) CT abdomen pelvis: 3 mm distal left UVJ stone without hydronephrosis present. Multiple other stones present in left kidney. Lab and imaging reviewed. Pain addressed improved with treatment. Recommendations are for supportive care with follow-up with local urologist. Impression Primary Impression: Ureterolithiasis Additional Impression: Acute left flank pain Disposition: HOME, SELF-CARE Condition: Stable Departure-Patient Inst. Decision time for Depature: 17:07 Referrals: SHIRIN CHIN (PCP) Primary Care Physician JAQUELIN DAVE MD Patient Instructions: Kidney Stone, Adult ED Add. Discharge Instructions: Please increase daily fluids and take newly prescribed medication as directed. Follow-up with urologist and your PCP for further management. All discharge instructions reviewed with patient and/or family. Voiced understanding. Scripts Oxycodone HCl/Acetaminophen (Percocet 5-325 mg Tablet) 1 Each Tablet 1 TAB PO Q4H for PAIN-MODERATE MDD 6 TABS for 7 Days, #10 TAB Prov: SMITHA TOVAR DO 06/18/20 SMITHA TOVAR DO June 18, 2020 17:08
[2020-06-18] MEDS ORDERED: OXYC1TAB87 PO (17:13)
== END 2020-06-18 17:17 | disposition home or self-care (01) ==
LOC: EDUNIT# 16:02 → ER FS 16:04
DX: N13.2 Hydronephrosis with renal and ureteral calculous obstruction (principal); I10 Essential (primary) hypertension
CPT/HCPCS: 36415; 74176; 80048; 85025

== ENCOUNTER 2020-07-19 22:31 | Emergency (ER) | payer SELFPAY ==
[~2020-07-19] VITALS: Ht 195.5 cm; Wt 142.1 kg
[2020-07-19] MEDS ORDERED: LIDOCAINE 1% INJ 20 ML 20 ML VIAL INJ STA (22:41)
[2020-07-19] MEDS ORDERED: fentaNYL INJ 100 MCG/2 ML AMP IM STA (22:41)
[2020-07-19] MEDS ORDERED: KETOROLAC 60 MG/2 ML VIAL IM STA (22:41)
[2020-07-19] MEDS ORDERED: AUGMENTIN 875 MG TAB (AMOXICILLIN/CLAVULANATE) PO STA (22:41)
--- NOTE | 2020-07-19 22:44 | ED EENT ---
History of Present Illness General Chief Complaint: Dental Problems/Pain Stated Complaint: DENTAL PAIN Source: patient History of Present Illness Date Seen by Provider: Jul 19, 2020 Time Seen by Provider: 22:32 Initial Comments 34 yo male presenting with complaint of pain to the right side of his mouth and face. He has no fever or chills but does have some swelling to his lower jaw on the right side. He has pain to the maxillary and mandibular areas on the right side. He has multiple caries and multiple missing teeth. He plans to follow-up with dental clinic this next week but with increased pain the last day or 2 he felt like he needed antibiotics and something stronger for pain since Tylenol and ibuprofen were not helping. He has not been having shortness of breath, chest pain, nausea, vomiting, change in vision, abdominal pain. Timing/Duration: gradual Location: dental Prearrival Treatment: over the counter meds (none since yesterday since they w ere not helping) Associated Symptoms: No change in hearing, No cough, No drooling, No ear drainage; facial pain/swelling; No fever, No malaise, No nasal congestion/drainage, No poor fluid intake, No poor solids intake, No sinus infection, No sore throat; tooth pain; No voice change Allergies and Home Medications Allergies Coded Allergies: No Known Drug Allergies (Unverified , 05/21/16) Home Medications Amoxicillin/Potassium Clav 1 Each Tablet, 1 EACH PO BID Prescribed by: TACOS GALLEGO on 07/19/205 Cyclobenzaprine HCl 5 Mg Tablet, 5 MG PO TID PRN for PAIN-MILD TO MODERATE Prescribed by: DELMY HOWARD on 05/21/161805 Ibuprofen 800 Mg Tablet, 800 MG PO Q8H PRN for PAIN Prescribed by: TACOS GALLEGO on 07/19/20 230 [place] Carbonate 450 Mg Tab, 450 MG PO TID, (Reported) Naproxen 500 Mg Tablet, 500 MG PO BID PRN for PAIN-MODERATE Prescribed by: DELMY HOWARD on 05/21/161805 Ondansetron 4 Mg Tab.rapdis, 4 MG PO Q6H Prescribed by: SMITHA TOVAR on 06/11/20 0230 Oxycodone HCl/Acetaminophen 1 Each Tablet, 1 TAB PO Q4H Prescribed by: SMITHA TOVAR on 06/11/20 023 Oxycodone HCl/Acetaminophen 1 Each Tablet, 1 TAB PO Q4H Prescribed by: SMITHA TOVAR on 06/18/20 1713 Oxycodone HCl/Acetaminophen 1 Each Tablet, 1 EACH PO Q4H PRN for PAIN-SEVERE (8- 10) Prescribed by: TACOS GALLEGO on 07/19/20 2306 Paroxetine HCl 20 Mg Tablet, 20 MG PO DAILY, (Reported) Tamsulosin HCl 0.4 Mg Cap, 0.4 MG PO Q6H Prescribed by: SMITHA TOVAR on 06/11/20 0230 Patient Home Medication List Home Medication List Reviewed: Yes Review of Systems Review of Systems Constitutional: No chills, No fever Eyes: No Symptoms Reported Ears: No Symptoms Reported Nose: no symptoms reported Mouth: pain, swelling; denies bloody discharge, denies clear discharge, denies purulent discharge, denies serosanguinous discharge; other (multiple caries and multiple missing teeth) Throat: no symptoms reported Respiratory: no symptoms reported Cardiovascular: no symptoms reported Gastrointestinal: no symptoms reported Musculoskeletal: no symptoms reported Skin: no symptoms reported Neurological: Headache Past Brovono-Lcogka-Umohdl Hx Past Med/Social Hx: Reviewed Nursing Past Med/Soc Hx Patient Social History Drug of Choice: POT Type Used: Cigarettes 2nd Hand Smoke Exposure: No Recent Hopitalizations: No Seasonal Allergies Seasonal Allergies: No Past Medical History Surgeries: Yes (LEFT HIP REPLACEMENT) Orthopedic Respiratory: No Cardiac: Yes Hypertension Neurological: No Reproductive Disorders: No Genitourinary: Yes Kidney Stones Gastrointestinal: No Musculoskeletal: Yes (LEFT HIP) Endocrine: No HEENT: No Cancer: No Psychosocial: Yes Depression Physical Exam Vital Signs Vital Signs - First Documented 07/19/20 22:31 Temp 37.2 Pulse 129 Resp 24 Pulse Ox 98 Height, Weight, BMI Height: 6'3.00" Weight: 300lbs. oz. 136.645159za; 37.00 BMI Method:Stated General Appearance: moderate distress, obese Eyes: bilateral eye PERRL, bilateral eye EOMI Ears: bilateral ear auricle normal, bilateral ear canal normal, bilateral ear TM normal Mouth/Throat: dental tenderness, mandibular swelling, other (widespread dental decay, missing several teeth, swelling to gums around teeth on right side where he has pain to mandible and maxilla) Neck: full range of motion, supple, lymphadenopathy (R) Cardiovascular: normal peripheral pulses, regular rate, rhythm Respiratory: chest non-tender, lungs clear, normal breath sounds Neurologic/Psychiatric: alert, oriented x 3 Procedures/Interventions Dental Procedures: Dental blk After obtaining verbal consent from patient to the 1% plain lidocaine digital block was placed to the right mandible at the angle of the jaw. A total of 1.5 mL was injected. Patient reported improvement in his pain symptoms. There was some purulent drainage from the area. Patient tolerated procedure well without any immediate complication. Progress/Results/Core Measures Results/Orders My Orders Orders - TACOS GALLEGO MD Lidocaine 1% Inj 20 Ml (Xylocaine 1% Inj (07/19/20 22:41) Amoxicillin/Clavulanate Tablet (Augmenti (07/19/20 22:41) Ketorolac Injection (Toradol Injection) (07/19/20 22:41) Fentanyl Inj (Sublimaze Injection) (07/19/20 22:41) Rx-Oxycodone/Apap 5-325 Mg (Rx-Percocet (07/19/20 23:15) Vital Signs/I&O 07/19/20 22:31 Temp 37.2 Pulse 129 Resp 24 B/P (MAP) Pulse Ox 98 Progress Progress Note : Progress Note Will start on antibiotics and perform dental block to try to help with his pain. Given pain shot as well as pain pills. He received fentanyl and Toradol to help with his pain and inflammation. Send a 4 pack of Percocet with the patient until pharmacy opens. Departure Impression Primary Impression: Pain due to dental caries Additional Impression: Dental abscess Disposition: 01 HOME, SELF-CARE Condition: Stable Departure-Patient Inst. Decision time for Depature: 23:20 Referrals: SHIRIN CHIN (PCP/Family) Primary Care Physician Patient Instructions: Dental Pain ED, Tooth Abscess (DC) Add. Discharge Instructions: Take antibiotics to treat for infection. Use pain medicine to help control pain and keep drinking plenty of fluids Follow up with clinic and get in with Dentist as soon as possible for definitive care All discharge instructions reviewed with patient and/or family. Voiced understanding. Scripts Ibuprofen (Ibuprofen) 800 Mg Tablet 800 MG PO Q8H PRN for PAIN for 10 Days, #30 TAB 0 Refills Prov: TACOS GALLEGO MD 07/19/20 Oxycodone HCl/Acetaminophen (Oxycodone-Acetaminophen 5-325) 1 Each Tablet 1 EACH PO Q4H PRN for PAIN-SEVERE (8-10) MDD 6 for 3 Days, #18 TAB 0 Refills Prov: TACOS GALLEGO MD 07/19/20 Amoxicillin/Potassium Clav (Amox Tr-K Clv 875-125 mg Tab) 1 Each Tablet 1 EACH PO BID for dental abscess for 10 Days, #20 TAB 0 Refills Prov: TACOS GALLEGO MD 07/19/20 Images Mouth/Nose 1 - Caries (Widespread decay throughout the mouth. Significant decay involving the posterior tooth on the right mandible), Swelling, Tenderness 2 - Caries (Widespread decay with multiple missing teeth and swollen gums), Swelling, Tenderness TACOS GALLEGO MD Jul 19, 2020 22:44
[2020-07-19] MEDS ORDERED: OXYC1TAB11 PO (23:05)
[2020-07-19] MEDS ORDERED: AMOX1TAB12 PO (23:05)
[2020-07-19] MEDS ORDERED: IBUP-1780 PO (23:05)
[2020-07-19] MEDS ORDERED: RX-OXYCODONE/APAP 5-325 MG #4 TAB PK PO PRN (23:15)
== END 2020-07-19 23:28 | disposition home or self-care (01) ==
LOC: EDUNIT# 22:31 → ER FS 22:34
DX: K02.9 Dental caries, unspecified (principal); K04.7 Periapical abscess without sinus; R59.0 Localized enlarged lymph nodes; I10 Essential (primary) hypertension; F32.9 Major depressive disorder, single episode, unspecified; E66.9 Obesity, unspecified; Z68.37 Body mass index [BMI] 37.0-37.9, adult; Z79.899 Other long term (current) drug therapy
CPT/HCPCS: 99284

== ENCOUNTER 2020-08-11 08:14 | Emergency (ER) | payer SELFPAY ==
[~2020-08-11] VITALS: Ht 195.5 cm; Wt 141.1 kg
[~2020-08-11 08:14] MED LIST changes: +AMOX1TAB12 PO; +IBUP-1780 PO; +OXYC1TAB11 PO
[2020-08-11] MEDS ORDERED: NS IV 1000 ML 1,000 ML IV STA (08:24)
[2020-08-11] MEDS ORDERED: KETOROLAC 30 MG/ML VIAL IVP STA (08:24)
[2020-08-11] MEDS ORDERED: ONDANSETRON 4 MG/2 ML (SDV) Z0FRAN IVP STA (08:24)
--- NOTE | 2020-08-11 08:27 | ED General ---
General Chief Complaint: General Problems/Pain Stated Complaint: DIARRHEA; HEADACHE; GEN ACHING; NAUSEA Source of Information: Patient History of Present Illness Date Seen by Provider: Aug 11, 2020 Time Seen by Provider: 08:18 Initial Comments 34-year-old male presenting with 4 days of generalized body aches, subjective fever chills, nausea, diarrhea. He denies any burning or pain with urination. He thinks that this may be related to eating some bad catfish. He has not seen any blood in his urine or stool. He has no ill contacts that he is aware of recently. He has burning sensation in his epigastric area especially with trying to eat or drink anything. He tried taking some Tums and Pepto-Bismol with little to no effect. Timing/Duration: 3-4 Days Severity: Moderate Associated Systoms: No Chest Pain, No Cough, No Diaphoresis; Fever/Chills (Subjective), Headaches; No Loss of Appetite; Malaise, Nausea/Vomiting (Nausea but no vomiting); No Rash, No Seizure, No Shortness of Air, No Syncope, No Weakness Allergies and Home Medications Allergies Coded Allergies: No Known Drug Allergies (Unverified , 05/21/16) Home Medications Amoxicillin/Potassium Clav 1 Each Tablet, 1 EACH PO BID Prescribed by: TACOS GALLEGO on 07/19/202304 Cyclobenzaprine HCl 5 Mg Tablet, 5 MG PO TID PRN for PAIN-MILD TO MODERATE Prescribed by: DELMY HOWARD on 05/21/161805 Dicyclomine HCl 20 Mg Tablet, 20 MG PO QID PRN for abdominal cramping Prescribed by: TACOS GALLEGO on 08/11/20 105 Ibuprofen 800 Mg Tablet, 800 MG PO Q8H PRN for PAIN Prescribed by: TACOS GALLEGO on 07/19/20 2305 [place] Carbonate 450 Mg Tab, 450 MG PO TID, (Reported) Naproxen 500 Mg Tablet, 500 MG PO BID PRN for PAIN-MODERATE Prescribed by: DELMY HOWARD on 05/21/161805 Ondansetron 4 Mg Tab.rapdis, 4 MG PO Q6H Prescribed by: SMITHA TOVAR on 06/11/20 0230 Ondansetron 4 Mg Tab.rapdis, 4 MG PO Q6H PRN for NAUSEA/VOMITING Prescribed by: TACOS GALLEGO on 08/11/20 1058 Oxycodone HCl/Acetaminophen 1 Each Tablet, 1 TAB PO Q4H Prescribed by: SMITHA TOVAR on 06/11/20 0230 Oxycodone HCl/Acetaminophen 1 Each Tablet, 1 TAB PO Q4H Prescribed by: SMITHA TOVAR on 06/18/20 1713 Oxycodone HCl/Acetaminophen 1 Each Tablet, 1 EACH PO Q4H PRN for PAIN-SEVERE (8- 10) Prescribed by: TACOS GALLEGO on 07/19/20 2306 Paroxetine HCl 20 Mg Tablet, 20 MG PO DAILY, (Reported) Tamsulosin HCl 0.4 Mg Cap, 0.4 MG PO Q6H Prescribed by: SMITHA TOVAR on 06/11/20 023 Patient Home Medication List Home Medication List Reviewed: Yes Review of Systems Review of Systems Constitutional: chills (Subjective); No diaphoresis, No dizziness; fever (subjective), malaise EENTM: no symptoms reported Respiratory: no symptoms reported Cardiovascular: no symptoms reported Gastrointestinal: see HPI Genitourinary: no symptoms reported Musculoskeletal: no symptoms reported Skin: no symptoms reported Psychiatric/Neurological: No Symptoms Reported Hematologic/Lymphatic: No Symptoms Reported Past Wksfuqe-Evvhfo-Uuzrpw Hx Seasonal Allergies Seasonal Allergies: No Past Medical History Surgeries: Yes (LEFT HIP REPLACEMENT) Orthopedic Respiratory: No Cardiac: Yes Hypertension Neurological: No Reproductive Disorders: No Genitourinary: Yes Kidney Stones Gastrointestinal: No Musculoskeletal: Yes (LEFT HIP) Endocrine: No HEENT: No Cancer: No Psychosocial: Yes Bipolar, Depression Blood Disorders: No Physical Exam Vital Signs Vital Signs - First Documented 08/11/20 08:27 Temp 36.8 Pulse 93 Resp 16 B/P (MAP) 137/85 (102) Pulse Ox 100 O2 Delivery Room Air Capillary Refill : Height, Weight, BMI Height: 6'3.00" Weight: 300lbs. oz. 136.399360tu; 37.00 BMI Method:Stated General Appearance: WD/WN, Anxious HEENT: PERRL/EOMI, Pharynx Normal Neck: Full Range of Motion, Normal Inspection, Non Tender, Supple Respiratory: Chest Non Tender, Lungs Clear, Normal Breath Sounds Cardiovascular: Regular Rate, Rhythm, Normal Peripheral Pulses Gastrointestinal: Normal Bowel Sounds, No Pulsatile Mass, Soft; No Guarding, No Rebound; Tenderness (mild diffuse pain but worse in epigastric area with palpation) Rectal: Deferred Back: No CVA Tenderness Extremity: Normal Capillary Refill, Normal Inspection, Normal Range of Motion, No Pedal Edema Neurologic/Psychiatric: Alert, Oriented x3, No Motor/Sensory Deficits, pharmacy innovation assistant II-X II Norm as Tested Skin: Normal Color, Warm/Dry Focused Exam Lactate Level 08/11/20 08:35: Lactic Acid Level 0.89 Lactic Acid Level Laboratory Tests Test 08/11/20 08:35 Lactic Acid Level 0.89 MMOL/L (0.50-2.00) Procedures/Interventions Dental Procedures: Dental blk Progress/Results/Core Measures Suspected Sepsis SIRS Temperature: Pulse: Respiratory Rate: Laboratory Tests 08/11/20 08:35: White Blood Count 11.9H Blood Pressure / Mean: 08/11/20 08:35: Lactic Acid Level 0.89 Laboratory Tests 08/11/20 08:35: Creatinine 0.85, Platelet Count 240, Total Bilirubin 0.2 Results/Orders Lab Results Laboratory Tests Test 08/11/20 08:35 Range/Units White Blood Count 11.9 H 4.3-11.0 10^3/uL Red Blood Count 4.91 4.35-5.85 10^6/uL Hemoglobin 14.9 13.3-17.7 G/DL Hematocrit 44 40-54 % Mean Corpuscular Volume 89 80-99 FL Mean Corpuscular Hemoglobin 30 25-34 PG Mean Corpuscular Hemoglobin Concent 34 32-36 G/DL Red Cell Distribution Width 12.9 10.0-14.5 % Platelet Count 240 130-400 10^3/uL Mean Platelet Volume 10.6 H 7.4-10.4 FL Immature Granulocyte % (Auto) 0 % Neutrophils (%) (Auto) 65 42-75 % Lymphocytes (%) (Auto) 22 12-44 % Monocytes (%) (Auto) 11 0-12 % Eosinophils (%) (Auto) 2 0-10 % Basophils (%) (Auto) 0 0-10 % Neutrophils # (Auto) 7.7 1.8-7.8 X 10^3 Lymphocytes # (Auto) 2.6 1.0-4.0 X 10^3 Monocytes # (Auto) 1.3 H 0.0-1.0 X 10^3 Eosinophils # (Auto) 0.2 0.0-0.3 10^3/uL Basophils # (Auto) 0.1 0.0-0.1 10^3/uL Immature Granulocyte # (Auto) 0.0 0.0-0.1 10^3/uL Sodium Level 136 135-145 MMOL/L Potassium Level 3.8 3.6-5.0 MMOL/L Chloride Level 102 98-107 MMOL/L Carbon Dioxide Level 24 21-32 MMOL/L Anion Gap 10 5-14 MMOL/L Blood Urea Nitrogen 13 7-18 MG/DL Creatinine 0.85 0.60-1.30 MG/DL Estimat Glomerular Filtration Rate > 60 BUN/Creatinine Ratio 15 Glucose Level 128 H 70-105 MG/DL Lactic Acid Level 0.89 0.50-2.00 MMOL/L Calcium Level 9.6 8.5-10.1 MG/DL Corrected Calcium 9.2 8.5-10.1 MG/DL Total Bilirubin 0.2 0.1-1.0 MG/DL Aspartate Amino Transf (AST/SGOT) 18 5-34 U/L Alanine Aminotransferase (ALT/SGPT) 35 0-55 U/L Alkaline Phosphatase 103 40-136 U/L Total Protein 7.5 6.4-8.2 GM/DL Albumin 4.5 3.2-4.5 GM/DL Lipase 18 8-78 U/L My Orders Orders - TACOS GALLEGO MD Comprehensive Metabolic Panel (08/11/20 08:24) Lipase (08/11/20 08:24) Ed Iv/Invasive Line Start (08/11/20 08:24) Cbc With Automated Diff (08/11/20 08:24) Blood Culture (08/11/20 08:24) Lactic Acid Analyzer (08/11/20 08:24) Ns Iv 1000 Ml (Sodium Chloride 0.9%) (08/11/20 08:24) Ketorolac Injection (Toradol Injection) (08/11/20 08:24) Ondansetron Injection (Zofran Injectio (08/11/20 08:24) Pantoprazole Injection (Protonix Injecti (08/11/20 09:01) Ct Abdomen/Pelvis W (08/11/20 09:26) Iohexol Injection (Omnipaque 350 Mg/Ml 1 (08/11/20 09:45) Received Contrast (Hold Metformin- Contr (08/11/20 09:45) Ns (Ivpb) (Sodium Chloride 0.9% Ivpb Bag (08/11/20 09:45) Sodium Chloride Flush (Catheter Flush Sy (08/11/20 09:45) Dicyclomine Injection (Bentyl Injection) (08/11/20 10:57) Medications Given in ED Current Medications Medications Dose Ordered Sig/Marquita Route Start Time Stop Time Status Last Admin Dose Admin Iohexol 100 ml ONCE ONCE IV 08/11/20 09:45 08/11/20 09:46 DC 08/11/20 09:45 100 ML Sodium Chloride 10 ml NEEDED PRN IV 08/11/20 09:45 08/11/20 09:45 10 ML Sodium Chloride 100 ml ONCE ONCE IV 08/11/20 09:45 08/11/20 09:46 DC 08/11/20 09:45 80 ML Vital Signs/I&O 08/11/20 08/11/20 08:27 11:20 Temp 36.8 Pulse 93 85 Resp 16 18 B/P (MAP) 137/85 (102) 133/78 Pulse Ox 100 97 O2 Delivery Room Air Room Air Capillary Refill : Progress Note #1: Progress Note Obtain labs as well as urinalysis and lipase. Give IV fluids for hydration, Toradol for pain, Zofran for nausea, Protonix for burning gastritis pain. Maintain a CT scan of his abdomen pelvis to be on his white count and labs. Differential diagnosis includes diverticulitis, obstructive kidney stone, colitis, enteritis, UTI, pyelonephritis, food poisoning, GERD. Progress Note #2: Progress Note Labs show mild elevation of his white blood cell count 11.9. He has normal lactic acid. His chemistry and CBC otherwise did not show acute significant normality. CT scan of his abdomen pelvis were added on to evaluate for acute pathology. Progress Note #3: Progress Note CT scan does not demonstrate any acute significant normality. He continues to show small kidney stones in the left kidney. On recheck the patient he states he does feel better. He did not feel like he needed to urinate but also did not feel he had any signs of UTI. Will add on Bentyl for abdominal cramping and discharged to home with Zofran, Bentyl, [id number] PPI. Offered to do a prescription PPI but patient wanted to do [id number]. Counseled on follow-up and return precautions. Diagnostic Imaging Diagonstic Imaging: CT Plain Films/CT/US/NM/MRI: abdomen, pelvis Comments NAME: [facility] REC#: [id number] PT STATUS: REG ER : 1985 PHYSICIAN: TACOS GALLEGO MD ADMIT DATE: 08/11/20/ER FS Draft Date of Exam:08/11/20 CT ABDOMEN/PELVIS W PROCEDURE: CT abdomen and pelvis with contrast. TECHNIQUE: Multiple contiguous axial images were obtained through the abdomen and pelvis after administration of intravenous contrast. Auto Exposure Controls were utilized during the CT exam to meet ALARA standards for radiation dose reduction. All CT scans use one or more of the following dose optimizing techniques: automated exposure control, MA and/or KvP adjustment based on patient size and exam type or iterative reconstruction. INDICATION: Upper abdominal pain COMPARISON: 06/18/2020 There is mild low-density throughout the liver without evidence of focal hepatic lesion. Gallbladder is contracted but otherwise unremarkable. No pancreatic or splenic lesion is identified. Nodule on the left adrenal gland is stable. Right adrenal gland is unremarkable. There are occasional mildly prominent central retroperitoneal lymph nodes without pathologically enlarged adenopathy. The appendix has a normal appearance. Punctate calcification in the lower pole left kidney is again identified. There is no evidence of hydronephrosis or hydroureter. There is artifact from left hip prosthesis which limits assessment of the pelvis however no pelvic fluid collection is identified. There is no evidence of bowel obstruction. IMPRESSION: Stable left nephrolithiasis without evidence of obstructive uropathy. Hepatic steatosis is not appreciably changed. Dictated on workstation # [id number] Dict: 08/11/20 0954 Trans: 08/11/20 1012 [facility] [id number] Interpreted by: RAMÓN MICHAEL MD Electronically signed by: Reviewed: Reviewed by Me Departure Impression Primary Impression: Epigastric abdominal pain Additional Impression: Gastroenteritis Disposition: 01 HOME, SELF-CARE Condition: Stable Departure-Patient Inst. Decision time for Depature: 10:59 Referrals: SHIRIN CHIN (PCP/Family) Primary Care Physician Patient Instructions: Nausea and Vomiting, Adult ED, Gastritis ED, Dehydration, Adult ED, Diarrhea, Adult ED Add. Discharge Instructions: Stay well hydrated and get plenty of water and electrolyte drinks to help wih hydration. Take medicine for gastritis such as Prilosec, Prevacid or Nexium. And use the prescription medicine for nausea. Check with clinic if not improving over the next few days All discharge instructions reviewed with patient and/or family. Voiced understanding. Scripts Dicyclomine HCl (Dicyclomine HCl) 20 Mg Tablet 20 MG PO QID PRN for abdominal cramping for 5 Days, #20 TAB 0 Refills Prov: TACOS GALLEGO MD 08/11/20 Ondansetron (Ondansetron Odt) 4 Mg Tab.rapdis 4 MG PO Q6H PRN for NAUSEA/VOMITING for 2 Days, #8 TAB 0 Refills Prov: TACOS GALLEGO MD 08/11/20 TACOS GALLEGO MD Aug 11, 2020 08:27
[2020-08-11] MEDS ORDERED: PANTOPRAZOLE 40 MG (PROTONIX) VIAL IV STA (09:01)
[2020-08-11 09:17] LABS: BASOPHILS % (AUTO) 0 % (0-10); EOSINOPHILS % (AUTO) 2 % (0-10); HEMATOCRIT 44 % (40-54); HEMOGLOBIN 14.9 G/DL (13.3-17.7); LYMPHOCYTES % (AUTO) 22 % (12-44); MEAN CORPUSCULAR HEMOGLOBIN 30 PG (25-34); MEAN CORPUSCULAR HGB CONC 34 G/DL (32-36); MEAN CORPUSCULAR VOLUME 89 FL (80-99); MEAN PLATELET VOLUME 10.6 FL (7.4-10.4); MONOCYTES % (AUTO) 11 % (0-12); NEUTROPHILS % (AUTO) 65 % (42-75); PLATELET COUNT 240 10^3/uL (130-400); WHITE BLOOD COUNT 11.9 10^3/uL (4.3-11.0)
[2020-08-11 09:18] LABS: BASOPHILS # (AUTO) 0.1 10^3/uL (0.0-0.1); EOSINOPHILS # (AUTO) 0.2 10^3/uL (0.0-0.3); LYMPHOCYTES # (AUTO) 2.6 X 10^3 (1.0-4.0); MONOCYTES # (AUTO) 1.3 X 10^3 (0.0-1.0); NEUTROPHILS # (AUTO) 7.7 X 10^3 (1.8-7.8)
[2020-08-11 09:19] LABS: ALANINE AMINOTRANSFERASE 35 U/L (0-55); ALKALINE PHOSPHATASE 103 U/L (40-136); BILIRUBIN,TOTAL 0.2 MG/DL (0.1-1.0); BUN/CREATININE RATIO 15; CALCIUM 9.6 MG/DL (8.5-10.1); CARBON DIOXIDE 24 MMOL/L (21-32); CHLORIDE 102 MMOL/L (98-107); CREATININE SERUM 0.85 MG/DL (0.60-1.30); GFR ESTIMATED > 60; GLUCOSE 128 MG/DL (70-105); POTASSIUM 3.8 MMOL/L (3.6-5.0); SODIUM 136 MMOL/L (135-145)
[2020-08-11 09:20] LABS: ALBUMIN 4.5 GM/DL (3.2-4.5); LIPASE 18 U/L (8-78); TOTAL PROTEIN 7.5 GM/DL (6.4-8.2)
[2020-08-11] MEDS ORDERED: CATHETER FLUSH 10 ML SYR IV PRN (09:45)
[2020-08-11] MEDS ORDERED: NS 100 ML (IVPB) BAG IV ONE (09:45)
[2020-08-11] MEDS ORDERED: IOHEXOL 350 MG/ML 100 ML (OMNIPAQUE 350) VIAL IV ONE (09:45)
[2020-08-11] MEDS ORDERED: HOLD METFORMIN - RECEIVED CONTRAST 20 ML VIAL IV SCH (09:45)
--- NOTE | 2020-08-11 10:13 | Diagnostic Imaging Report ---
PROCEDURE: CT abdomen and pelvis with contrast. TECHNIQUE: Multiple contiguous axial images were obtained through the abdomen and pelvis after administration of intravenous contrast. Auto Exposure Controls were utilized during the CT exam to meet ALARA standards for radiation dose reduction. All CT scans use one or more of the following dose optimizing techniques: automated exposure control, MA and/or KvP adjustment based on patient size and exam type or iterative reconstruction. INDICATION: Upper abdominal pain COMPARISON: 06/18/2020 There is mild low-density throughout the liver without evidence of focal hepatic lesion. Gallbladder is contracted but otherwise unremarkable. No pancreatic or splenic lesion is identified. Nodule on the left adrenal gland is stable. Right adrenal gland is unremarkable. There are occasional mildly prominent central retroperitoneal lymph nodes without pathologically enlarged adenopathy. The appendix has a normal appearance. Punctate calcification in the lower pole left kidney is again identified. There is no evidence of hydronephrosis or hydroureter. There is artifact from left hip prosthesis which limits assessment of the pelvis however no pelvic fluid collection is identified. There is no evidence of bowel obstruction. IMPRESSION: Stable left nephrolithiasis without evidence of obstructive uropathy. Hepatic steatosis is not appreciably changed. Dictated by: Dictated on workstation # [id number]
[2020-08-11] MEDS ORDERED: DICYCLOMINE 10 MG/ML (BENTYL) 2 ML AMP IM STA (10:57)
[2020-08-11] MEDS ORDERED: DICY20TA10 PO (10:58)
[2020-08-11] MEDS ORDERED: ONDA4TAB11 PO (10:58)
[2020-08-11 11:20] VITALS: BP 133/78
== END 2020-08-11 11:20 | disposition home or self-care (01) ==
LOC: EDUNIT# 08:14 → ER FS 08:16
DX: K52.9 Noninfective gastroenteritis and colitis, unspecified (principal); I10 Essential (primary) hypertension; F32.9 Major depressive disorder, single episode, unspecified; Z79.899 Other long term (current) drug therapy
CPT/HCPCS: 36415; 74177; 80053; 83605; 83690; 85025; 87040

== ENCOUNTER 2020-09-23 22:19 | Emergency (ER) | payer SELFPAY ==
[~2020-09-23] VITALS: Ht 195.5 cm; Wt 147.4 kg
[~2020-09-23 22:19] MED LIST changes: +DICY20TA10 PO
[2020-09-23] MEDS ORDERED: ONDANSETRON 4 MG/2 ML (SDV) Z0FRAN ONE (22:27)
[2020-09-23] MEDS ORDERED: FAMOTIDINE 20MG/2ML IV (PEPCID) IVP ONE (22:30)
[2020-09-23] MEDS ORDERED: ONDANSETRON 4 MG/2 ML (SDV) Z0FRAN IVP ONE (22:30)
[2020-09-23] MEDS ORDERED: NS IV 1000 ML 1,000 ML IV SCH (22:30)
[2020-09-23 22:49] LABS: EOSINOPHILS % (AUTO) 2 % (0-10); HEMATOCRIT 44 % (40-54); HEMOGLOBIN 15.1 G/DL (13.3-17.7); LYMPHOCYTES % (AUTO) 32 % (12-44); MEAN CORPUSCULAR HEMOGLOBIN 30 PG (25-34); MEAN CORPUSCULAR HGB CONC 34 G/DL (32-36); MEAN CORPUSCULAR VOLUME 88 FL (80-99); MEAN PLATELET VOLUME 10.6 FL (7.4-10.4); MONOCYTES % (AUTO) 8 % (0-12); NEUTROPHILS % (AUTO) 58 % (42-75); PLATELET COUNT 279 10^3/uL (130-400); WHITE BLOOD COUNT 14.4 10^3/uL (4.3-11.0)
[2020-09-23 22:50] LABS: BASOPHILS # (AUTO) 0.1 10^3/uL (0.0-0.1); BASOPHILS % (AUTO) 0 % (0-10); EOSINOPHILS # (AUTO) 0.3 10^3/uL (0.0-0.3); LYMPHOCYTES # (AUTO) 4.5 X 10^3 (1.0-4.0); MONOCYTES # (AUTO) 1.1 X 10^3 (0.0-1.0); NEUTROPHILS # (AUTO) 8.3 X 10^3 (1.8-7.8)
[2020-09-23 23:01] LABS: CALCIUM 9.5 MG/DL (8.5-10.1); POTASSIUM 4.3 MMOL/L (3.6-5.0)
[2020-09-23 23:02] LABS: ALBUMIN 4.2 GM/DL (3.2-4.5); BILIRUBIN,TOTAL 0.2 MG/DL (0.1-1.0); TOTAL PROTEIN 7.2 GM/DL (6.4-8.2)
--- NOTE | 2020-09-23 23:22 | ED General ---
General Chief Complaint: Substance Abuse Stated Complaint: ALTERED LOC Nursing Triage Note: Patient is brought in via EMS. Patient was found outside in a field. Patient states that he had been drinking whiskey for his birthday. Patient states he is extremely drunk. EMS placed an 18 in the left AC and has normal saline running. Patient does seem to answer questions but is lethargic. Patient states he is suicidal and wants to slit his wrists but only if he is going to longterm for being drunk. Source of Information: Patient Exam Limitations: No Limitations History of Present Illness Date Seen by Provider: Sep 23, 2020 Time Seen by Provider: 23:00 Initial Comments Patient is a 35-year-old alcohol intoxicated male who presents with alcohol intoxication after being found with state lying in the field. Patient fell landing on left hip. Patient was celebrating his 35rd birthday with his girlfriend. Police were contacted. Patient initially states he was suicidal as he thought he would be arrested. He then recanted desire to kill himself. His girlfriend at bedside states patient was not has never been suicidal to her knowledge. Timing/Duration: 1/2 Hour Severity: Moderate Modifying Factors: improves with Other Associated Systoms: Other Allergies and Home Medications Allergies Coded Allergies: No Known Drug Allergies (Unverified , 05/21/16) Home Medications Amoxicillin/Potassium Clav 1 Each Tablet, 1 EACH PO BID Prescribed by: TACOS GALLEGO on 07/19/20 2305 Cyclobenzaprine HCl 5 Mg Tablet, 5 MG PO TID PRN for PAIN-MILD TO MODERATE Prescribed by: DELMY HOWARD on 05/21/16 180 Dicyclomine HCl 20 Mg Tablet, 20 MG PO QID PRN for abdominal cramping Prescribed by: TACOS GALLEGO on 08/11/20 1058 Ibuprofen 800 Mg Tablet, 800 MG PO Q8H PRN for PAIN Prescribed by: TACOS GALLEGO on 07/19/20 2305 [place] Carbonate 450 Mg Tab, 450 MG PO TID, (Reported) Naproxen 500 Mg Tablet, 500 MG PO BID PRN for PAIN-MODERATE Prescribed by: DELMY HOWARD on 05/21/16 180 Ondansetron 4 Mg Tab.rapdis, 4 MG PO Q6H Prescribed by: SMITHA TOVAR on 06/11/20 0230 Ondansetron 4 Mg Tab.rapdis, 4 MG PO Q6H PRN for NAUSEA/VOMITING Prescribed by: TACOS GALLEGO on 08/11/20 1058 Oxycodone HCl/Acetaminophen 1 Each Tablet, 1 TAB PO Q4H Prescribed by: SMITHA TOVAR on 06/11/20 0230 Oxycodone HCl/Acetaminophen 1 Each Tablet, 1 TAB PO Q4H Prescribed by: SMITHA TOVAR on 06/18/20 1713 Oxycodone HCl/Acetaminophen 1 Each Tablet, 1 EACH PO Q4H PRN for PAIN-SEVERE (8- 10) Prescribed by: TACOS GALLEGO on 07/19/20 2306 Paroxetine HCl 20 Mg Tablet, 20 MG PO DAILY, (Reported) Tamsulosin HCl 0.4 Mg Cap, 0.4 MG PO Q6H Prescribed by: SMITHA TOVAR on 06/11/20 0230 Patient Home Medication List Home Medication List Reviewed: Yes Review of Systems Review of Systems Constitutional: see HPI EENTM: see HPI Respiratory: see HPI Cardiovascular: see HPI Gastrointestinal: see HPI Genitourinary: see HPI Musculoskeletal: see HPI Skin: see HPI Psychiatric/Neurological: See HPI Hematologic/Lymphatic: See HPI Immunological/Allergic: see HPI Past Bculzmp-Pbhwdy-Pptxyf Hx Patient Social History Tobacco Use?: Yes Tobacco type used: Cigarettes Smoking Status: Current Everyday Smoker Substance use?: No Alcohol Use?: Yes Alcohol type: Hard Liquor Pt feels they are or have been: No Seasonal Allergies Seasonal Allergies: No Past Medical History Surgeries: Yes (LEFT HIP REPLACEMENT) Orthopedic Respiratory: No Cardiac: Yes Hypertension Neurological: No Reproductive Disorders: No Genitourinary: Yes Kidney Stones Gastrointestinal: No Musculoskeletal: Yes (LEFT HIP) Endocrine: No HEENT: No Cancer: No Psychosocial: Yes Bipolar, Depression Blood Disorders: No Physical Exam Vital Signs Vital Signs - First Documented 09/23/20 22:20 Temp 36.1 Pulse 100 Resp 20 B/P (MAP) 137/78 (97) Pulse Ox 97 O2 Delivery Room Air Capillary Refill : Less Than 3 Seconds Height, Weight, BMI Height: 6'3.00" Weight: 300lbs. oz. [id number]; 38.00 BMI Method:Stated General Appearance: No Apparent Distress, WD/WN, Other (Smells of EtOH intoxicants) Eyes: Bilateral Eye Normal Inspection, Bilateral Eye PERRL, Bilateral Eye EOMI HEENT: PERRL/EOMI, Normal ENT Inspection, Pharynx Normal Neck: Full Range of Motion, Non Tender Respiratory: Chest Non Tender, Lungs Clear Cardiovascular: Regular Rate, Rhythm Neurologic/Psychiatric: Alert, Oriented x3 Focused Exam Sepsis Stage: Ruled Out Procedures/Interventions Dental Procedures: Dental blk Progress/Results/Core Measures Suspected Sepsis SIRS Temperature: Pulse: 100 Respiratory Rate: 20 Laboratory Tests 09/23/20 22:27: White Blood Count 14.4H Blood Pressure 137 /78 Mean: 97 Laboratory Tests 09/23/20 22:27: Creatinine 1.00, Platelet Count 279, Total Bilirubin 0.2 Results/Orders Lab Results Laboratory Tests Test 09/23/20 22:27 Range/Units White Blood Count 14.4 H 4.3-11.0 10^3/uL Red Blood Count 5.04 4.35-5.85 10^6/uL Hemoglobin 15.1 13.3-17.7 G/DL Hematocrit 44 40-54 % Mean Corpuscular Volume 88 80-99 FL Mean Corpuscular Hemoglobin 30 25-34 PG Mean Corpuscular Hemoglobin Concent 34 32-36 G/DL Red Cell Distribution Width 12.8 10.0-14.5 % Platelet Count 279 130-400 10^3/uL Mean Platelet Volume 10.6 H 7.4-10.4 FL Immature Granulocyte % (Auto) 0 % Neutrophils (%) (Auto) 58 42-75 % Lymphocytes (%) (Auto) 32 12-44 % Monocytes (%) (Auto) 8 0-12 % Eosinophils (%) (Auto) 2 0-10 % Basophils (%) (Auto) 0 0-10 % Neutrophils # (Auto) 8.3 H 1.8-7.8 X 10^3 Lymphocytes # (Auto) 4.5 H 1.0-4.0 X 10^3 Monocytes # (Auto) 1.1 H 0.0-1.0 X 10^3 Eosinophils # (Auto) 0.3 0.0-0.3 10^3/uL Basophils # (Auto) 0.1 0.0-0.1 10^3/uL Immature Granulocyte # (Auto) 0.1 0.0-0.1 10^3/uL Neutrophils % (Manual) 48 % Lymphocytes % (Manual) 37 % Monocytes % (Manual) 5 % Eosinophils % (Manual) 3 % Band Neutrophils 1 % Atypical Lymphocytes 6 % Hypochromasia SLIGHT Poikilocytosis SLIGHT Anisocytosis SLIGHT Microcytosis SLIGHT Schistocytes SLIGHT Sodium Level 139 135-145 MMOL/L Potassium Level 4.3 3.6-5.0 MMOL/L Chloride Level 106 98-107 MMOL/L Carbon Dioxide Level 18 L 21-32 MMOL/L Anion Gap 15 H 5-14 MMOL/L Blood Urea Nitrogen 13 7-18 MG/DL Creatinine 1.00 0.60-1.30 MG/DL Estimat Glomerular Filtration Rate 86 BUN/Creatinine Ratio 13 Glucose Level 114 H 70-105 MG/DL Calcium Level 9.5 8.5-10.1 MG/DL Corrected Calcium 9.3 8.5-10.1 MG/DL Total Bilirubin 0.2 0.1-1.0 MG/DL Aspartate Amino Transf (AST/SGOT) 27 5-34 U/L Alanine Aminotransferase (ALT/SGPT) 37 0-55 U/L Alkaline Phosphatase 99 40-136 U/L Total Protein 7.2 6.4-8.2 GM/DL Albumin 4.2 3.2-4.5 GM/DL Serum Alcohol 273 H <10 MG/DL My Orders Orders - SMITHA TOVAR DO Ondansetron Injection (Zofran Injectio (09/23/20 22:30) Ondansetron Injection (Zofran Injectio (09/23/20 22:27) Ns Iv 1000 Ml (Sodium Chloride 0.9%) (09/23/20 22:30) Famotidine Injection (Pepcid Injection) (09/23/20 22:30) Cbc With Automated Diff (09/23/20 22:38) Comprehensive Metabolic Panel (09/23/20 22:38) Drug Screen Stat (Urine) (09/23/20 22:38) Alcohol (09/23/20 22:38) Ekg-Prn For Chest Pain Or Rhyt (09/23/20 22:39) Manual Differential (09/23/20 22:27) Medications Given in ED Current Medications Medications Dose Ordered Sig/Marquita Route Start Time Stop Time Status Last Admin Dose Admin Famotidine 20 mg ONCE ONCE IVP 09/23/20 22:30 09/23/20 22:31 DC 09/23/20 22:47 20 MG Ondansetron HCl 4 mg ONCE ONCE IVP 09/23/20 22:30 09/23/20 22:31 DC 09/23/20 22:30 4 MG Vital Signs/I&O 09/23/20 22:20 Temp 36.1 Pulse 100 Resp 20 B/P (MAP) 137/78 (97) Pulse Ox 97 O2 Delivery Room Air Capillary Refill : Less Than 3 Seconds Blood Pressure Mean: 97 Departure Communication (Admissions) Acute alcohol intoxication. Patient denies HI, SI. States he was just partying for his birthday. Patient will be discharged home to his girlfriend. PCP follow-up recommended. Return precautions reviewed. Impression Primary Impression: Alcohol abuse Disposition: HOME, SELF-CARE Condition: Stable Departure-Patient Inst. Decision time for Depature: 23:46 Referrals: SHIRIN CHIN (PCP/Family) Primary Care Physician Patient Instructions: ALCOHOL AND SUBSTANCE ABUSE Add. Discharge Instructions: Please go home and rest and limit future alcohol consumption. Follow-up with your PCP for further concerns. All discharge instructions reviewed with patient and/or family. Voiced under standing. SMITHA TOVAR DO Sep 23, 2020 23:22
[2020-09-23 23:41] LABS: ATYPICAL LYMPHOCYTES 6 %; BAND NEUTROPHILS 1 %; EOSINOPHILS % (MANUAL) 3 %; LYMPHOCYTES % (MANUAL) 37 %; MONOCYTES % (MANUAL) 5 %; NEUTROPHILS % (MANUAL) 48 %
[2020-09-23 23:42] LABS: ANISOCYTOSIS SLIGHT; HYPOCHROMASIA SLIGHT; MICROCYTOSIS SLIGHT; POIKILOCYTOSIS SLIGHT; SCHISTOCYTES SLIGHT
[2020-09-24 00:10] VITALS: BP 126/82
== END 2020-09-24 00:11 | disposition home or self-care (01) ==
LOC: EDUNIT# 22:19 → ER FS 22:20
DX: F10.10 Alcohol abuse, uncomplicated (principal); I10 Essential (primary) hypertension; F32.9 Major depressive disorder, single episode, unspecified; F17.210 Nicotine dependence, cigarettes, uncomplicated; Z79.899 Other long term (current) drug therapy
CPT/HCPCS: 36415; 80053; 85007; 85027; 99283; G0480; 80320

== ENCOUNTER 2020-11-25 19:44 | Emergency (ER) | payer SELFPAY ==
[~2020-11-25] VITALS: Ht 193 cm; Wt 139.0 kg
--- NOTE | 2020-11-25 19:52 | ED EENT ---
History of Present Illness General Chief Complaint: Dental Problems/Pain Stated Complaint: RT SIDE TOOTH PAIN History of Present Illness Date Seen by Provider: Nov 25, 2020 Time Seen by Provider: 19:47 Initial Comments 35-year-old male presents with right-sided dental pain. Patient reports he has a bad wisdom tooth on the upper right. Is scheduled to come out 10 days from now. He is currently on a second round of clindamycin but feels like he still having quite a bit of pain and is worried he may have an abscess. Patient normally goes to the [facility] but they're close this time at night. Denies any fevers chills nausea or vomiting. He does have mild right generalized headache from the bad tooth. Allergies and Home Medications Allergies Coded Allergies: No Known Drug Allergies (Unverified , 05/21/16) Patient Home Medication List Home Medication List Reviewed: Yes Amoxicillin/Potassium Clav (Amox Tr-K Clv 875-125 mg Tab) 1 Each Tablet, 1 EACH PO BID Prescribed by: TACOS GALLEGO on 07/19/20 2305 Cyclobenzaprine HCl (Cyclobenzaprine HCl) 5 Mg Tablet, 5 MG PO TID PRN for PAIN- MILD TO MODERATE Prescribed by: DELMY HOWARD on 05/21/16 1806 Dicyclomine HCl (Dicyclomine HCl) 20 Mg Tablet, 20 MG PO QID PRN for abdominal cramping Prescribed by: TACOS GALLEGO on 08/11/20 1058 Ibuprofen (Ibuprofen) 800 Mg Tablet, 800 MG PO Q8H PRN for PAIN Prescribed by: TACOS GALLEGO on 07/19/20 2305 [place] Carbonate ([place] Carbonate ER) 450 Mg Tab, 450 MG PO TID, (Reported) Entered as Reported by: MADELYN CARROLL on 05/21/16 1658 Naproxen (Naprosyn) 500 Mg Tablet, 500 MG PO BID PRN for PAIN-MODERATE Prescribed by: DELMY HOWARD on 05/21/16 1806 Ondansetron (Ondansetron Odt) 4 Mg Tab.rapdis, 4 MG PO Q6H Prescribed by: SMITHA TOVAR on 06/11/20 0230 Ondansetron (Ondansetron Odt) 4 Mg Tab.rapdis, 4 MG PO Q6H PRN for NAUSEA/VOMITING Prescribed by: TACOS GALLEGO on 08/11/20 1058 Oxycodone HCl/Acetaminophen (Percocet 5-325 mg Tablet) 1 Each Tablet, 1 TAB PO Q4H Prescribed by: SMITHA TOVAR on 06/11/20 0230 Oxycodone HCl/Acetaminophen (Percocet 5-325 mg Tablet) 1 Each Tablet, 1 TAB PO Q4H Prescribed by: SMITHA TOVAR on 06/18/20 1713 Oxycodone HCl/Acetaminophen (Oxycodone-Acetaminophen 5-325) 1 Each Tablet, 1 EACH PO Q4H PRN for PAIN-SEVERE (8-10) Prescribed by: TACOS GALLEGO on 07/19/20 2306 Paroxetine HCl (Paxil) 20 Mg Tablet, 20 MG PO DAILY, (Reported) Entered as Reported by: MADELYN CARROLL on 05/21/16 1658 Tamsulosin HCl (Flomax) 0.4 Mg Cap, 0.4 MG PO Q6H Prescribed by: SMITHA TOVAR on 06/11/20 0230 Review of Systems Review of Systems Constitutional: no symptoms reported Eyes: No Symptoms Reported Mouth: see HPI Throat: no symptoms reported Respiratory: no symptoms reported Cardiovascular: no symptoms reported Gastrointestinal: no symptoms reported Musculoskeletal: no symptoms reported Past Yfipcwa-Mrnsxj-Ubicij Hx Seasonal Allergies Seasonal Allergies: No Past Medical History Surgeries: Yes (LEFT HIP REPLACEMENT) Orthopedic Respiratory: No Cardiac: Yes Hypertension Neurological: No Reproductive Disorders: No Genitourinary: Yes Kidney Stones Gastrointestinal: No Musculoskeletal: Yes (LEFT HIP) Endocrine: No HEENT: No Cancer: No Psychosocial: Yes Bipolar, Depression Blood Disorders: No Physical Exam Height, Weight, BMI Height: 6'3.00" Weight: 300lbs. oz. 136.300270so; 38.00 BMI Method:Stated General Appearance: mild distress Mouth/Throat: other (In area that is irritated and red and raw likely from him biting it. There is no palpable abscess or noticeable abscess or drainage. He does have poor wisdom tooth on both the right upper and lower) Cardiovascular: normal peripheral pulses, regular rate, rhythm Respiratory: lungs clear, normal breath sounds Gastrointestinal: non tender, soft Neurologic/Psychiatric: alert, normal mood/affect, oriented x 3 Skin: normal color, warm/dry Procedures/Interventions Dental Procedures: Dental blk Progress/Results/Core Measures Results/Orders My Orders Orders - ELHAM DC DO Rocephin 1000mg Im (11/25/20 20:00) Lidocaine 1% Inj 20 Ml (Xylocaine 1% Inj (11/25/20 20:00) Toradol 60 Mg Im (11/25/20 19:55) Ultram 50 Mg Po (11/25/20 19:55) Progress Progress Note : Progress Note Patient with no obvious abscess. He does have irritation on his right inner cheek likely due from him biting it or rubbing along with a poor tooth. We'll give him some mild pain medication here in the ER since he has some at home in addition I'll give him a shot of Rocephin. Recommend he follow-up with the emergency dental clinic tomorrow since they're managing this and can further help with his treatment Departure Impression Primary Impression: Dental caries extending into dentine Additional Impression: Infected dental caries Disposition: HOME, SELF-CARE Condition: Stable Departure-Patient Inst. Referrals: SHIRIN CHIN (PCP/Family) Primary Care Physician Patient Instructions: Dental Pain Add. Discharge Instructions: Call or follow-up with the emergency dental clinic tomorrow for further management All discharge instructions reviewed with patient and/or family. Voiced understanding. ELHAM DC DO Nov 25, 2020 19:52
[2020-11-25] MEDS: KETOROLAC 60 MG/2 ML VIAL IM STA (20:06)
[2020-11-25] MEDS: cefTRIAXone 1,000 MG VIAL IM ONE (20:07)
[2020-11-25] MEDS: LIDOCAINE 1% INJ 20 ML 20 ML VIAL INJ ONE (20:08)
[2020-11-25 20:15] VITALS: BP 159/78
== END 2020-11-25 20:15 | disposition home or self-care (01) ==
LOC: EDUNIT# 19:44 → ER FS 19:45
DX: K02.9 Dental caries, unspecified (principal); I10 Essential (primary) hypertension; F32.9 Major depressive disorder, single episode, unspecified; Z79.899 Other long term (current) drug therapy
CPT/HCPCS: 99284

== ENCOUNTER 2021-03-17 22:08 | Emergency (ER) | payer SELFPAY ==
[~2021-03-17] VITALS: Ht 193 cm; Wt 142.0 kg
[~2021-03-17 22:08] MED LIST changes: +DICY20TA PO; -DICY20TA10 PO
[2021-03-17 22:15] VITALS: BP 131/81
--- NOTE | 2021-03-17 22:16 | ED Lower Extremity ---
General Stated Complaint: LT FOOT PAIN/SWELLING History of Present Illness Date Seen by Provider: Mar 17, 2021 Time Seen by Provider: 22:16 Initial Comments 35-year-old male presents with left foot pain. Patient reports that some point today it became swollen red warm. This started the distal part of his foot and skin moved of his leg. Hurts to the touch. Patient states that hurts to have his socks or anything tested. Patient denies any injury. He does report that he walks around barefoot a lot. He does not recall any erythema or redness to it earlier than today. 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 No fevers chills nausea or vomiting. No posterior calf pain. Allergies and Home Medications Allergies Coded Allergies: No Known Drug Allergies (Unverified , 05/21/16) Patient Home Medication List Home Medication List Reviewed: Yes Amoxicillin/Potassium Clav (Amox Tr-K Clv 875-125 mg Tab) 1 Each Tablet, 1 EACH PO BID Prescribed by: TACOS GALLEGO on 07/19/20 2305 Cephalexin (Cephalexin) 500 Mg Tablet, 500 MG PO QID Prescribed by: ELHAM DC on 03/17/21 2313 Cyclobenzaprine HCl (Cyclobenzaprine HCl) 5 Mg Tablet, 5 MG PO TID PRN for PAIN- MILD TO MODERATE Prescribed by: DELMY HOWARD on 05/21/16 180 Dicyclomine HCl (Dicyclomine HCl) 20 Mg Tablet, 20 MG PO QID PRN for abdominal cramping Prescribed by: TACOS GALLEGO on 08/11/20 1058 Ibuprofen (Ibuprofen) 800 Mg Tablet, 800 MG PO Q8H PRN for PAIN Prescribed by: TACOS GALLEGO on 07/19/20 2305 [place] Carbonate ([place] Carbonate ER) 450 Mg Tab, 450 MG PO TID, (Reported) Entered as Reported by: MADELYN CARROLL on 05/21/16 1658 Naproxen (Naprosyn) 500 Mg Tablet, 500 MG PO BID PRN for PAIN-MODERATE Prescribed by: DELMY HOWARD on 05/21/16 1806 Ondansetron (Ondansetron Odt) 4 Mg Tab.rapdis, 4 MG PO Q6H Prescribed by: SMITHA TOVAR on 06/11/20 0230 Ondansetron (Ondansetron Odt) 4 Mg Tab.rapdis, 4 MG PO Q6H PRN for NAUSEA/VOMITING Prescribed by: TACOS GALLEGO on 08/11/20 1058 Oxycodone HCl/Acetaminophen (Percocet 5-325 mg Tablet) 1 Each Tablet, 1 TAB PO Q4H Prescribed by: SMITHA TOVAR on 06/11/20 0230 Oxycodone HCl/Acetaminophen (Percocet 5-325 mg Tablet) 1 Each Tablet, 1 TAB PO Q4H Prescribed by: SMITHA TOVAR on 06/18/20 1713 Oxycodone HCl/Acetaminophen (Oxycodone-Acetaminophen 5-325) 1 Each Tablet, 1 EACH PO Q4H PRN for PAIN-SEVERE (8-10) Prescribed by: TACOS GALLEGO on 07/19/20 2306 Paroxetine HCl (Paxil) 20 Mg Tablet, 20 MG PO DAILY, (Reported) Entered as Reported by: MADELYN CARROLL on 05/21/16 1658 Tamsulosin HCl (Flomax) 0.4 Mg Cap, 0.4 MG PO Q6H Prescribed by: SMITHA TOVAR on 06/11/20 0230 Review of Systems Constitutional: No chills, No fever Cardiovascular: no symptoms reported Gastrointestinal: no symptoms reported Musculoskeletal: see HPI Skin: see HPI Psychiatric/Neurological: See HPI Past Pusjutx-Sieqam-Ipvuku Hx Immunizations Up To Date First/Initial COVID19 Vaccinat: NA Seasonal Allergies Seasonal Allergies: No Past Medical History Surgeries: Yes (LEFT HIP REPLACEMENT) Orthopedic Respiratory: No Cardiac: Yes Hypertension Neurological: No Reproductive Disorders: No Genitourinary: Yes Kidney Stones Gastrointestinal: No Musculoskeletal: Yes (LEFT HIP) Endocrine: No HEENT: No Cancer: No Psychosocial: Yes Bipolar, Depression Blood Disorders: No Physical Exam Vital Signs Vital Signs - First Documented 03/17/21 22:15 Temp 37.0 Pulse 115 Resp 16 B/P (MAP) 131/81 (98) Pulse Ox 98 O2 Delivery Room Air Capillary Refill : Height, Weight, BMI Height: 6'3.00" Weight: 300lbs. oz. 136.314595kt; 37.00 BMI Method:Stated General Appearance: mild distress, obese Cardiovascular: normal peripheral pulses, regular rate, rhythm Respiratory: lungs clear, normal breath sounds Gastrointestinal: non tender, soft Feet: left foot infection, left foot pain, left foot soft tissue tenderness, left foot swelling Neurologic/Psychiatric: alert, normal mood/affect, oriented x 3 Skin: other (Warmth, erythema of the foot that is starting to track mildly up the ankle.) Procedures/Interventions Dental Procedures: Dental blk Progress/Results/Core Measures Results/Orders Lab Results Laboratory Tests Test 03/17/21 22:30 Range/Units White Blood Count 15.4 H 4.3-11.0 10^3/uL Red Blood Count 5.01 4.30-5.52 10^6/uL Hemoglobin 14.8 13.3-17.7 g/dL Hematocrit 44 40-54 % Mean Corpuscular Volume 87 80-99 fL Mean Corpuscular Hemoglobin 30 25-34 pg Mean Corpuscular Hemoglobin Concent 34 32-36 g/dL Red Cell Distribution Width 12.9 10.0-14.5 % Platelet Count 247 130-400 10^3/uL Mean Platelet Volume 10.5 9.0-12.2 fL Immature Granulocyte % (Auto) 0 % Neutrophils (%) (Auto) 71 42-75 % Lymphocytes (%) (Auto) 19 12-44 % Monocytes (%) (Auto) 7 0-12 % Eosinophils (%) (Auto) 2 0-10 % Basophils (%) (Auto) 0 0-10 % Neutrophils # (Auto) 10.9 H 1.8-7.8 10^3/uL Lymphocytes # (Auto) 2.9 1.0-4.0 10^3/uL Monocytes # (Auto) 1.1 H 0.0-1.0 10^3/uL Eosinophils # (Auto) 0.4 H 0.0-0.3 10^3/uL Basophils # (Auto) 0.1 0.0-0.1 10^3/uL Immature Granulocyte # (Auto) 0.1 0.0-0.1 10^3/uL Neutrophils % (Manual) 67 % Lymphocytes % (Manual) 25 % Monocytes % (Manual) 5 % Eosinophils % (Manual) 2 % Basophils % (Manual) 0 % Band Neutrophils 0 % Atypical Lymphocytes 1 % Sodium Level 139 135-145 MMOL/L Potassium Level 3.6 3.6-5.0 MMOL/L Chloride Level 102 98-107 MMOL/L Carbon Dioxide Level 22 21-32 MMOL/L Anion Gap 15 H 5-14 MMOL/L Blood Urea Nitrogen 16 7-18 MG/DL Creatinine 1.02 0.60-1.30 MG/DL Estimat Glomerular Filtration Rate 100 BUN/Creatinine Ratio 16 Glucose Level 138 H 70-105 MG/DL Calcium Level 9.3 8.5-10.1 MG/DL Corrected Calcium 9.1 8.5-10.1 MG/DL Total Bilirubin 0.4 0.1-1.0 MG/DL Aspartate Amino Transf (AST/SGOT) 19 5-34 U/L Alanine Aminotransferase (ALT/SGPT) 43 0-55 U/L Alkaline Phosphatase 111 40-136 U/L C-Reactive Protein 1.76 H <0.50 MG/DL Total Protein 7.1 6.4-8.2 GM/DL Albumin 4.2 3.2-4.5 GM/DL My Orders Orders - DCELHAM L DO Cbc With Automated Diff (03/17/21 22:18) Comprehensive Metabolic Panel (03/17/21 22:18) Crp Fs (03/17/21 22:18) Uric Acid (03/17/21 22:18) Ketorolac Injection (Toradol Injection) (03/17/21 22:18) Ed Iv/Invasive Line Start (03/17/21 22:18) Ceftriaxone (Rocephin) (03/17/21 22:30) Foot 3 View Left (03/17/21 22:23) Manual Differential (03/17/21 22:30) Medications Given in ED Current Medications Medications Dose Ordered Sig/Marquita Route Start Time Stop Time Status Last Admin Dose Admin Ceftriaxone Sodium 2000 mg/ Sodium Chloride 50 ml @ 240 mls/hr ONCE ONCE IV 03/17/21 22:30 03/17/21 22:42 DC 03/17/21 22:31 240 MLS/HR Vital Signs/I&O 03/17/21 22:15 Temp 37.0 Pulse 115 Resp 16 B/P (MAP) 131/81 (98) Pulse Ox 98 O2 Delivery Room Air Diagnostic Imaging Diagonstic Imaging: Xray Comments Date of Exam:03/17/21 FOOT 3 VIEW LEFT INDICATION: Swelling and erythema EXAMINATION: Left foot 03/17/2021 FINDINGS: 3 views of the foot There is soft tissue swelling along the forefoot. No fractures or dislocations appreciated. IMPRESSION: 1. Nonspecific soft tissue swelling. Reviewed: Reviewed by Me, Reviewed/Discussed Departure Impression Primary Impression: Cellulitis of left foot Disposition: HOME, SELF-CARE Condition: Stable Departure-Patient Inst. Referrals: SHIRIN CHIN (PCP/Family) Primary Care Physician Patient Instructions: Cellulitis and Erysipelas (Skin Infections) Add. Discharge Instructions: Monitor closely, it may spread for additional 24 hours and should quit spreading and started to improve. Please follow-up with your primary care provider within 48 hours for recheck of your symptoms. Return to the ER if it significantly worsens, if you develop nausea, vomiting fevers chills or any other concerns Ibuprofen 800 mg every 8 hours or Tylenol 1000 mg every 8 hours as needed for pain Scripts Cephalexin (Cephalexin) 500 Mg Tablet 500 MG PO QID, #28 TAB 0 Refills Prov: ELHAM DC DO 03/17/21 Work/School Note: Work Release Form Date Seen in the Emergency Department: Mar 17, 2021 Return to Work: Mar 20, 2021 ELHAM DC DO Mar 17, 2021 22:16
[2021-03-17] MEDS ORDERED: KETOROLAC 30 MG/ML VIAL IVP STA (22:18)
[2021-03-17] MEDS ORDERED: cefTRIAXone 2,000 MG in NS (IVPB) 50 ML IV ONE (22:30)
[2021-03-17 22:49] LABS: BASOPHILS # (AUTO) 0.1 10^3/uL (0.0-0.1); BASOPHILS % (AUTO) 0 % (0-10); EOSINOPHILS # (AUTO) 0.4 10^3/uL (0.0-0.3); EOSINOPHILS % (AUTO) 2 % (0-10); HEMATOCRIT 44 % (40-54); HEMOGLOBIN 14.8 g/dL (13.3-17.7); LYMPHOCYTES # (AUTO) 2.9 10^3/uL (1.0-4.0); LYMPHOCYTES % (AUTO) 19 % (12-44); MEAN CORPUSCULAR HEMOGLOBIN 30 pg (25-34); MEAN CORPUSCULAR HGB CONC 34 g/dL (32-36); MEAN CORPUSCULAR VOLUME 87 fL (80-99); MEAN PLATELET VOLUME 10.5 fL (9.0-12.2); MONOCYTES # (AUTO) 1.1 10^3/uL (0.0-1.0); MONOCYTES % (AUTO) 7 % (0-12); NEUTROPHILS # (AUTO) 10.9 10^3/uL (1.8-7.8); NEUTROPHILS % (AUTO) 71 % (42-75); PLATELET COUNT 247 10^3/uL (130-400); WHITE BLOOD COUNT 15.4 10^3/uL (4.3-11.0)
--- NOTE | 2021-03-17 22:52 | Diagnostic Imaging Report ---
INDICATION: Swelling and erythema EXAMINATION: Left foot 03/17/2021 FINDINGS: 3 views of the foot There is soft tissue swelling along the forefoot. No fractures or dislocations appreciated. IMPRESSION: 1. Nonspecific soft tissue swelling. Dictated by: Dictated on workstation # [id number]
[2021-03-17 23:09] LABS: BAND NEUTROPHILS 0 %; BASOPHILS % (MANUAL) 0 %; EOSINOPHILS % (MANUAL) 2 %; LYMPHOCYTES % (MANUAL) 25 %; MONOCYTES % (MANUAL) 5 %; NEUTROPHILS % (MANUAL) 67 %
[2021-03-17 23:10] LABS: ATYPICAL LYMPHOCYTES 1 %; BILIRUBIN,TOTAL 0.4 MG/DL (0.1-1.0); CALCIUM 9.3 MG/DL (8.5-10.1); CREATININE SERUM 1.02 MG/DL (0.60-1.30); POTASSIUM 3.6 MMOL/L (3.6-5.0)
[2021-03-17 23:11] LABS: ALBUMIN 4.2 GM/DL (3.2-4.5); TOTAL PROTEIN 7.1 GM/DL (6.4-8.2)
[2021-03-17] MEDS ORDERED: CEPH500T PO (23:13)
[2021-03-18 13:41] LABS: URIC ACID 4.9 MG/DL (2.6-7.2)
== END 2021-03-17 23:30 | disposition home or self-care (01) ==
LOC: EDUNIT# 22:08 → ER FS 22:09
DX: L03.116 Cellulitis of left lower limb (principal); I10 Essential (primary) hypertension; E66.9 Obesity, unspecified; F32.9 Major depressive disorder, single episode, unspecified; Z68.37 Body mass index [BMI] 37.0-37.9, adult; Z79.899 Other long term (current) drug therapy
CPT/HCPCS: 36415; 73630; 80053; 84550; 85007; 85027; 86141

== ENCOUNTER 2021-10-26 22:00 | Emergency (ER) | payer SELFPAY ==
[~2021-10-26] VITALS: Ht 193 cm; Wt 139.7 kg
[~2021-10-26 22:00] MED LIST changes: +CEPH500T PO
--- NOTE | 2021-10-26 22:13 | ED General ---
General Stated Complaint: BACK PAIN Source of Information: Patient Exam Limitations: No Limitations History of Present Illness Date Seen by Provider: Oct 26, 2021 Time Seen by Provider: 22:05 Initial Comments 36-year-old male presents to the emergency department today for right flank pain. He initially thought pain was secondary to a kidney stone and it started on 10/07. It has been persistent since that time, worsening in the last couple of days. Does have significant history of kidney stones and had to have retrieval about 5 years ago. He states he passed a gravel sized kidney stone just couple of days ago. He is unsure if it is a kidney stone at this time because he can usually "feel them moving down." He denies any fevers chills nausea or vomiting. No dysuria, hematuria. No changes in his bowels. No known injury to his back. Pain is burning sensation in his right flank region without radiation. No aggravating or alleviating factors. Allergies and Home Medications Allergies Coded Allergies: No Known Drug Allergies (Unverified , 05/21/16) Patient Home Medication List Home Medication List Reviewed: Yes Amoxicillin/Potassium Clav (Amox Tr-K Clv 875-125 mg Tab) 1 Each Tablet, 1 EACH PO BID Prescribed by: TACOS GALLEGO on 07/19/20 2305 Cephalexin (Cephalexin) 500 Mg Tablet, 500 MG PO QID Prescribed by: ELAHM DC on 03/17/21 2313 Cyclobenzaprine HCl (Cyclobenzaprine HCl) 5 Mg Tablet, 5 MG PO TID PRN for PAIN- MILD TO MODERATE Prescribed by: DELMY HOWARD on 05/21/16 180 Cyclobenzaprine HCl (Cyclobenzaprine HCl) 5 Mg Tablet, 5 MG PO Q6H Prescribed by: STEPHANIE KEN MD on 10/26/21 2251 Dicyclomine HCl (Dicyclomine HCl) 20 Mg Tablet, 20 MG PO QID PRN for abdominal cramping Prescribed by: TACOS GALLEGO on 08/11/20 1058 Ibuprofen (Ibuprofen) 800 Mg Tablet, 800 MG PO Q8H PRN for PAIN Prescribed by: TACOS GALLEGO on 07/19/20 2305 Hepzibah Carbonate (Hepzibah Carbonate ER) 450 Mg Tab, 450 MG PO TID, (Reported) Entered as Reported by: MADELYN CARROLL on 05/21/16 1658 Naproxen (Naprosyn) 500 Mg Tablet, 500 MG PO BID PRN for PAIN-MODERATE Prescribed by: DELMY HOWARD on 05/21/16 1806 Ondansetron (Ondansetron Odt) 4 Mg Tab.rapdis, 4 MG PO Q6H Prescribed by: SMITHA TOVAR on 06/11/20 0230 Ondansetron (Ondansetron Odt) 4 Mg Tab.rapdis, 4 MG PO Q6H PRN for NAUSEA/VOMITING Prescribed by: TACOS GALLEGO on 08/11/20 1058 Oxycodone HCl/Acetaminophen (Percocet 5-325 mg Tablet) 1 Each Tablet, 1 TAB PO Q4H Prescribed by: SMITHA TOVAR on 06/11/20 0230 Oxycodone HCl/Acetaminophen (Percocet 5-325 mg Tablet) 1 Each Tablet, 1 TAB PO Q4H Prescribed by: SMITHA TOVAR on 06/18/20 1713 Oxycodone HCl/Acetaminophen (Oxycodone-Acetaminophen 5-325) 1 Each Tablet, 1 EACH PO Q4H PRN for PAIN-SEVERE (8-10) Prescribed by: TACOS GALLEGO on 07/19/20 2306 Paroxetine HCl (Paxil) 20 Mg Tablet, 20 MG PO DAILY, (Reported) Entered as Reported by: MADELYN CARROLL on 05/21/16 165 Tamsulosin HCl (Flomax) 0.4 Mg Cap, 0.4 MG PO Q6H Prescribed by: SMITHA TOVAR on 06/11/20 0230 Review of Systems Review of Systems Constitutional: no symptoms reported EENTM: no symptoms reported Respiratory: no symptoms reported Cardiovascular: no symptoms reported Gastrointestinal: other (Right flank pain) Genitourinary: no symptoms reported Musculoskeletal: no symptoms reported Skin: no symptoms reported Psychiatric/Neurological: No Symptoms Reported Hematologic/Lymphatic: No Symptoms Reported Immunological/Allergic: no symptoms reported Past Uezelyy-Kgmoii-Jxuang Hx Patient Social History Tobacco Use?: Yes Tobacco type used: Cigarettes Use of E-Cig and/or Vaping dev: No Substance use?: No Alcohol Use?: No Immunizations Up To Date First/Initial COVID19 Vaccinat: NA Seasonal Allergies Seasonal Allergies: No Past Medical History Surgeries: Yes (LEFT HIP REPLACEMENT) Orthopedic Respiratory: No Cardiac: Yes Hypertension Neurological: No Reproductive Disorders: No Genitourinary: Yes Kidney Stones Gastrointestinal: No Musculoskeletal: Yes (LEFT HIP) Endocrine: No HEENT: No Cancer: No Psychosocial: Yes Bipolar, Depression Blood Disorders: No Family Medical History Reviewed Nursing Family Hx No Pertinent Family Hx Physical Exam Vital Signs Capillary Refill : Height, Weight, BMI Height: 6'3.00" Weight: 300lbs. oz. 136.021467yu; 38.00 BMI Method:Stated General Appearance: No Apparent Distress, WD/WN HEENT: PERRL/EOMI, Normal ENT Inspection, Pharynx Normal Neck: Normal Inspection, Non Tender, Supple Respiratory: Chest Non Tender, Lungs Clear, Normal Breath Sounds, No Accessory Muscle Use, No Respiratory Distress Cardiovascular: Regular Rate, Rhythm, No Edema, No Gallop, No JVD, No Murmur, Normal Peripheral Pulses Gastrointestinal: Normal Bowel Sounds, No Organomegaly, No Pulsatile Mass, Non Tender, Soft Back: Normal Inspection, No Vertebral Tenderness, CVA Tenderness (R) Extremity: Normal Capillary Refill, Normal Inspection, Normal Range of Motion, Non Tender, No Calf Tenderness Skin: Normal Color, Warm/Dry Lymphatic: No Adenopathy Procedures/Interventions Dental Procedures: Dental blk Progress/Results/Core Measures Suspected Sepsis SIRS Temperature: Pulse: Respiratory Rate: Laboratory Tests 10/26/21 22:25: White Blood Count 9.5 Blood Pressure / Mean: Laboratory Tests 10/26/21 22:25: Creatinine 0.70, Platelet Count 300, Total Bilirubin 0.2 Results/Orders Lab Results Laboratory Tests Test 10/26/21 22:05 10/26/21 22:25 Range/Units Urine Color YELLOW Urine Clarity CLEAR Urine pH 6.0 5-9 Urine Specific [place] 1.025 H 1.016-1.022 Urine Protein NEGATIVE NEGATIVE Urine Glucose (UA) NEGATIVE NEGATIVE Urine Ketones NEGATIVE NEGATIVE Urine Nitrite NEGATIVE NEGATIVE Urine Bilirubin NEGATIVE NEGATIVE Urine Urobilinogen 0.2 < = 1.0 MG/DL Urine Leukocyte Esterase NEGATIVE NEGATIVE Urine RBC (Auto) NEGATIVE NEGATIVE Urine RBC RARE /HPF Urine WBC 2-5 /HPF Urine Squamous Epithelial Cells 0-2 /HPF Urine Crystals NONE /LPF Urine Bacteria NEGATIVE /HPF Urine Casts NONE /LPF Urine Mucus SMALL H /LPF Urine Culture Indicated NO White Blood Count 9.5 4.3-11.0 10^3/uL Red Blood Count 4.82 4.30-5.52 10^6/uL Hemoglobin 14.9 13.3-17.7 g/dL Hematocrit 43 40-54 % Mean Corpuscular Volume 90 80-99 fL Mean Corpuscular Hemoglobin 31 25-34 pg Mean Corpuscular Hemoglobin Concent 35 32-36 g/dL Red Cell Distribution Width 13.2 10.0-14.5 % Platelet Count 300 130-400 10^3/uL Mean Platelet Volume 10.0 9.0-12.2 fL Immature Granulocyte % (Auto) 0 % Neutrophils (%) (Auto) 58 42-75 % Lymphocytes (%) (Auto) 31 12-44 % Monocytes (%) (Auto) 8 0-12 % Eosinophils (%) (Auto) 3 0-10 % Basophils (%) (Auto) 0 0-10 % Neutrophils # (Auto) 5.5 1.8-7.8 10^3/uL Lymphocytes # (Auto) 2.9 1.0-4.0 10^3/uL Monocytes # (Auto) 0.8 0.0-1.0 10^3/uL Eosinophils # (Auto) 0.3 0.0-0.3 10^3/uL Basophils # (Auto) 0.0 0.0-0.1 10^3/uL Immature Granulocyte # (Auto) 0.0 0.0-0.1 10^3/uL Sodium Level 141 135-145 MMOL/L Potassium Level 4.3 3.6-5.0 MMOL/L Chloride Level 107 98-107 MMOL/L Carbon Dioxide Level 23 21-32 MMOL/L Anion Gap 11 5-14 MMOL/L Blood Urea Nitrogen 9 7-18 MG/DL Creatinine 0.70 0.60-1.30 MG/DL Estimat Glomerular Filtration Rate 124 BUN/Creatinine Ratio 13 Glucose Level 98 70-105 MG/DL Calcium Level 9.3 8.5-10.1 MG/DL Corrected Calcium 9.1 8.5-10.1 MG/DL Total Bilirubin 0.2 0.1-1.0 MG/DL Aspartate Amino Transf (AST/SGOT) 17 5-34 U/L Alanine Aminotransferase (ALT/SGPT) 30 0-55 U/L Alkaline Phosphatase 94 40-136 U/L Total Protein 7.2 6.4-8.2 GM/DL Albumin 4.2 3.2-4.5 GM/DL My Orders Orders - STEPHANIE KEN DO Cbc With Automated Diff (10/26/21 22:08) Comprehensive Metabolic Panel (10/26/21 22:08) Ketorolac Injection (Toradol Injection) (10/26/21 22:15) Ct Abd/Pelvis Wo(Kidney Stone) (10/26/21 22:08) Ua Culture If Indicated (10/26/21 22:09) Cyclobenzaprine Tablet (Flexeril Tablet) (10/26/21 23:00) Medications Given in ED Current Medications Medications Dose Ordered Sig/Marquita Route Start Time Stop Time Status Last Admin Dose Admin Ketorolac Tromethamine 30 mg ONCE ONCE IM 10/26/21 22:15 10/26/21 22:17 DC 10/26/21 22:13 30 MG Vital Signs/I&O Capillary Refill : Diagnostic Imaging Diagonstic Imaging: CT Plain Films/CT/US/NM/MRI: abdomen Comments NAME: [facility] REC#: [id number] PT STATUS: REG ER : 1985 PHYSICIAN: STEPHANIE KEN DO ADMIT DATE: 10/26/21/ER FS Signed Date of Exam:10/26/21 CT ABD/PELVIS WO(KIDNEY STONE) PROCEDURE: CT urinary tract, rule out kidney stone. TECHNIQUE: Multiple contiguous axial images were obtained through the abdomen and pelvis without the use of intravenous contrast. Auto Exposure Controls were utilized during the CT exam to meet ALARA standards for radiation dose reduction. INDICATION: Right flank pain x2 weeks. EXAMINATION: CT abdomen and pelvis without contrast from 10/26/2021. FINDINGS: Lung bases clear. Nonopacified liver and spleen unremarkable. There is a small 1 cm nodule in the left adrenal gland similar to previous CT, presumably an adenoma but a dedicated adrenal protocol CT on a nonemergent basis could further characterize. Right adrenal gland is unremarkable. Pancreas is normal. Gallbladder unremarkable. There are nonobstructive punctate stones in the right kidney. No hydronephrosis. No ureteral stones on either side. Appendix is normal. There are findings of constipation throughout the colon. There is mild diverticular disease with no evidence for acute diverticulitis. There is no ascites or free air. There is postoperative change in the left hip. No acute osseous abnormality is appreciated. IMPRESSION: 1. Punctate nonobstructive stones right kidney with no hydronephrosis or ureteral stones appreciated. 2. Findings of constipation. 3. Left adrenal lesion; see above discussion. Dictated by: Dictated on workstation # [id number] Dict: 10/26/212235 Trans: 10/26/212244 [facility] [id number] Interpreted by: ROBIN CAM MD Electronically signed by: ROBIN CAM MD 10/26/212244 Departure Impression Primary Impression: Right flank pain Disposition: HOME, SELF-CARE Condition: Stable Departure-Patient Inst. Decision time for Depature: 22:55 Referrals: SHIRIN CHIN (PCP/Family) Primary Care Physician Patient Instructions: Flank Pain (DC) Add. Discharge Instructions: You were seen in the emergency department today for flank pain. CT scan shows no evidence for kidney stones. Continue to use muscle relaxers as prescribed as needed. Also use Motrin and Tylenol for pain. Return to the emergency department for any severe concerns Scripts Cyclobenzaprine HCl (Cyclobenzaprine HCl) 5 Mg Tablet 5 MG PO Q6H for Muscle Spasms for 7 Days, #28 TAB Prov: STEPHANIE KEN DO 10/26/21 STEPHANIE KEN DO Oct 26, 2021 22:13
[2021-10-26] MEDS ORDERED: KETOROLAC 60 MG/2 ML VIAL IM ONE (22:15)
[2021-10-26 22:29] LABS: BASOPHILS % (AUTO) 0 % (0-10); EOSINOPHILS # (AUTO) 0.3 10^3/uL (0.0-0.3); EOSINOPHILS % (AUTO) 3 % (0-10); HEMATOCRIT 43 % (40-54); HEMOGLOBIN 14.9 g/dL (13.3-17.7); LYMPHOCYTES # (AUTO) 2.9 10^3/uL (1.0-4.0); LYMPHOCYTES % (AUTO) 31 % (12-44); MEAN CORPUSCULAR HEMOGLOBIN 31 pg (25-34); MEAN CORPUSCULAR HGB CONC 35 g/dL (32-36); MEAN CORPUSCULAR VOLUME 90 fL (80-99); MONOCYTES # (AUTO) 0.8 10^3/uL (0.0-1.0); MONOCYTES % (AUTO) 8 % (0-12); NEUTROPHILS # (AUTO) 5.5 10^3/uL (1.8-7.8); NEUTROPHILS % (AUTO) 58 % (42-75); PLATELET COUNT 300 10^3/uL (130-400); WHITE BLOOD COUNT 9.5 10^3/uL (4.3-11.0)
[2021-10-26 22:30] LABS: BILIRUBIN,URINE NEGATIVE (NEGATIVE); CLARITY,URINE CLEAR; COLOR,URINE YELLOW; GLUCOSE, URINE (UA) NEGATIVE (NEGATIVE); KETONES,URINE NEGATIVE (NEGATIVE); LEUKOCYTE ESTERASE ,URINE NEGATIVE (NEGATIVE); NITRITE,URINE NEGATIVE (NEGATIVE); PROTEIN,URINE NEGATIVE (NEGATIVE)
[2021-10-26 22:35] LABS: RBC,URINE RARE /HPF
[2021-10-26 22:36] LABS: BACTERIA,URINE NEGATIVE /HPF; SQUAMOUS EPITHELIAL CELL,UR 0-2 /HPF
--- NOTE | 2021-10-26 22:45 | Diagnostic Imaging Report ---
PROCEDURE: CT urinary tract, rule out kidney stone. TECHNIQUE: Multiple contiguous axial images were obtained through the abdomen and pelvis without the use of intravenous contrast. Auto Exposure Controls were utilized during the CT exam to meet ALARA standards for radiation dose reduction. INDICATION: Right flank pain x2 weeks. EXAMINATION: CT abdomen and pelvis without contrast from 10/26/2021. FINDINGS: Lung bases clear. Nonopacified liver and spleen unremarkable. There is a small 1 cm nodule in the left adrenal gland similar to previous CT, presumably an adenoma but a dedicated adrenal protocol CT on a nonemergent basis could further characterize. Right adrenal gland is unremarkable. Pancreas is normal. Gallbladder unremarkable. There are nonobstructive punctate stones in the right kidney. No hydronephrosis. No ureteral stones on either side. Appendix is normal. There are findings of constipation throughout the colon. There is mild diverticular disease with no evidence for acute diverticulitis. There is no ascites or free air. There is postoperative change in the left hip. No acute osseous abnormality is appreciated. IMPRESSION: 1. Punctate nonobstructive stones right kidney with no hydronephrosis or ureteral stones appreciated. 2. Findings of constipation. 3. Left adrenal lesion; see above discussion. Dictated by: Dictated on workstation # [id number]
[2021-10-26 22:48] LABS: ALBUMIN 4.2 GM/DL (3.2-4.5); BILIRUBIN,TOTAL 0.2 MG/DL (0.1-1.0); CALCIUM 9.3 MG/DL (8.5-10.1); CREATININE SERUM 0.7 MG/DL (0.60-1.30); POTASSIUM 4.3 MMOL/L (3.6-5.0); TOTAL PROTEIN 7.2 GM/DL (6.4-8.2)
[2021-10-26] MEDS ORDERED: CYCL5TAB PO (22:51)
[2021-10-26] MEDS ORDERED: CYCLOBENZAPRINE 10 MG (FLEXERIL) TAB PO SCH (23:00)
[2021-10-26 23:05] VITALS: BP 129/75
== END 2021-10-26 23:05 | disposition home or self-care (01) ==
LOC: EDUNIT# 22:00 → ER FS 22:01
DX: R10.9 Unspecified abdominal pain (principal); F17.210 Nicotine dependence, cigarettes, uncomplicated; Z28.310 Unvaccinated for COVID-19
CPT/HCPCS: 36415; 74176; 80053; 81000; 85025

== ENCOUNTER 2021-11-12 10:48 | Emergency (ER) | payer SELFPAY ==
[~2021-11-12] VITALS: Ht 193 cm; Wt 140.0 kg
--- NOTE | 2021-11-12 10:57 | ED Back Pain ---
General Chief Complaint: Back Problems Stated Complaint: BACK PAIN History of Present Illness Date Seen by Provider: Nov 12, 2021 Time Seen by Provider: 10:57 Initial Comments Patient with mid back pain. Patient has chronic back pain. He reports that he bent over and now has pain in his back. He has not tried anything for it. Patient presents because he "wants to know what is wrong" patient reports that about once a month he states this happens. Patient has not follow-up with his primary care provider for further evaluation. Patient reports that we always tell him is just a muscle spasm when he comes in. Patient has no midline tenderness. Pain is worse with movement. Patient was recently seen and evaluated with a CT looking for kidney stone after similar episode that was negative with no other acute findings. Patient with no numbness, tingling, focal weakness, bowel or bladder issues. Allergies and Home Medications Allergies Coded Allergies: No Known Drug Allergies (Unverified , 05/21/16) Patient Home Medication List Home Medication List Reviewed: Yes Amoxicillin/Potassium Clav (Amox Tr-K Clv 875-125 mg Tab) 1 Each Tablet, 1 EACH PO BID Prescribed by: TACOS GALLEGO on 07/19/20 2305 Baclofen (Baclofen) 5 Mg Tablet, 5 MG PO Q8H Prescribed by: ELHAM DC on 11/12/21 1131 Cephalexin (Cephalexin) 500 Mg Tablet, 500 MG PO QID Prescribed by: ELHAM DC on 03/17/21 2313 Cyclobenzaprine HCl (Cyclobenzaprine HCl) 5 Mg Tablet, 5 MG PO TID PRN for PAIN- MILD TO MODERATE Prescribed by: DELMY HOWARD on 05/21/16 1806 Cyclobenzaprine HCl (Cyclobenzaprine HCl) 5 Mg Tablet, 5 MG PO Q6H Prescribed by: STEPHANIE KEN MD on 10/26/21 2251 Dicyclomine HCl (Dicyclomine HCl) 20 Mg Tablet, 20 MG PO QID PRN for abdominal cramping Prescribed by: TACOS GALLEGO on 08/11/20 1058 Ibuprofen (Ibuprofen) 800 Mg Tablet, 800 MG PO Q8H PRN for PAIN Prescribed by: TACOS GALLEGO on 07/19/20 2305 Endwell Carbonate (Endwell Carbonate ER) 450 Mg Tab, 450 MG PO TID, (Reported) Entered as Reported by: MADELYN CARROLL on 05/21/16 1658 Naproxen (Naprosyn) 500 Mg Tablet, 500 MG PO BID PRN for PAIN-MODERATE Prescribed by: DELMY HOWARD on 05/21/16 1806 Naproxen (Naprosyn) 500 Mg Tablet, 500 MG PO BID Prescribed by: ELHAM DC on 11/12/21 1131 Ondansetron (Ondansetron Odt) 4 Mg Tab.rapdis, 4 MG PO Q6H Prescribed by: SMITHA TOVAR on 06/11/20 0230 Ondansetron (Ondansetron Odt) 4 Mg Tab.rapdis, 4 MG PO Q6H PRN for NAUSEA/VOMITING Prescribed by: TACOS GALLEGO on 08/11/20 1058 Oxycodone HCl/Acetaminophen (Percocet 5-325 mg Tablet) 1 Each Tablet, 1 TAB PO Q4H Prescribed by: SMITHA TOVAR on 06/11/20 0230 Oxycodone HCl/Acetaminophen (Percocet 5-325 mg Tablet) 1 Each Tablet, 1 TAB PO Q4H Prescribed by: SMITHA TOVAR on 06/18/20 1713 Oxycodone HCl/Acetaminophen (Oxycodone-Acetaminophen 5-325) 1 Each Tablet, 1 EACH PO Q4H PRN for PAIN-SEVERE (8-10) Prescribed by: TACOS GALLEGO on 07/19/20 2306 Paroxetine HCl (Paxil) 20 Mg Tablet, 20 MG PO DAILY, (Reported) Entered as Reported by: MADELYN CARROLL on 05/21/16 1658 Tamsulosin HCl (Flomax) 0.4 Mg Cap, 0.4 MG PO Q6H Prescribed by: SMITHA TOVAR on 06/11/20 0230 Review of Systems Constitutional: no symptoms reported EENTM: no symptoms reported Respiratory: no symptoms reported Cardiovascular: no symptoms reported Gastrointestinal: no symptoms reported Genitourinary: no symptoms reported Musculoskeletal: see HPI, back pain Skin: no symptoms reported Psychiatric/Neurological: No Symptoms Reported Past Kwsoqis-Qzvcqt-Ukpkfz Hx Immunizations Up To Date First/Initial COVID19 Vaccinat: NA Second COVID19 Vaccination Sourav: NA Third COVID19 Vaccination Date: NA Seasonal Allergies Seasonal Allergies: No Past Medical History Surgery/Hospitalization HX: Left THR, Renal Calculi, ESWL Surgeries: Yes (LEFT HIP REPLACEMENT) Orthopedic Respiratory: No Cardiac: Yes Hypertension Neurological: No Reproductive Disorders: No Genitourinary: Yes Kidney Stones Gastrointestinal: No Musculoskeletal: Yes (LEFT HIP) Endocrine: No HEENT: No Cancer: No Psychosocial: Yes Bipolar, Depression Blood Disorders: No Family Medical History No Pertinent Family Hx Physical Exam Vital Signs Vital Signs - First Documented 11/12/21 11:02 Temp 36.3 Pulse 98 Resp 18 B/P (MAP) 162/96 (118) Pulse Ox 99 O2 Delivery Room Air Capillary Refill : Height, Weight, BMI Height: 6'3.00" Weight: 300lbs. oz. 136.127629qw; 37.00 BMI Method:Stated General Appearance: No Apparent Distress, Obese Neck: Normal Inspection, Non Tender Cardiovascular: Regular Rate, Rhythm, No Edema Respiratory: No Accessory Muscle Use, No Respiratory Distress Gastrointestinal: Soft; No Distended Back: Other (Bilateral mid thoracicParaspinal tenderness with no vertebral tenderness or step-off noted) Extremity: Normal Capillary Refill, Normal Inspection Neurologic/Psychiatric: Alert, Oriented x3 Skin: Normal Color, Warm/Dry Procedures/Interventions Dental Procedures: Dental blk Progress/Results/Core Measures Results/Orders My Orders Orders - ELHAM DC DO Ketorolac Injection (Toradol Injection) (11/12/21 11:10) Orphenadrine Inj (Ed Only) (Norflex Inje (11/12/21 11:10) Vital Signs/I&O 11/12/21 11/12/21 11:02 11:48 Temp 36.3 36.3 Pulse 98 98 Resp 18 18 B/P (MAP) 162/96 (118) 162/96 Pulse Ox 99 99 O2 Delivery Room Air Room Air Progress Progress Note : Progress Note Patient with recurrent chronic back pain. Patient on 10/26/[address] that showed no acute findings. Discussed with patient that he needs to follow-up with a primary care provider that he should consider physical therapy. If it continues they can consider an MRI. Patient does not have any focal neurologic findings or deficits. Patient received Toradol and Norflex in the ER and was discharged. There is no indication for any further imaging on an emergent basis. Patient will be given some naproxen and baclofen for the pain for a couple days. He is stable and discharged Departure Impression Primary Impression: Chronic back pain Qualified Codes: M54.6 - Pain in thoracic spine; G89.29 - Other chronic pain Additional Impression: Muscle spasm Disposition: 01 HOME, SELF-CARE Condition: Stable Departure-Patient Inst. Referrals: SHIRIN CHIN (PCP) Primary Care Physician JOSE ALBERTO WHITE MD (Family) Primary Care Physician Patient Instructions: MANAGING YOUR CHRONIC PAIN, Back Muscle Strain (DC), Active Range of Motion Exercises, Back and Hips, Exercise Band Exercises for the Back and Hips Add. Discharge Instructions: 4% topical lidocaine with menthol cream gel or patch to affected area as directed on package as needed for pain, diclofenac/Voltaren cream use as directed on package as needed for pain Please follow-up with your primary care provider for further evaluation and possible PT or specialist referral as needed along with any other imaging they feel is indicated. All discharge instructions reviewed with patient and/or family. Voiced understanding. Scripts Baclofen (Baclofen) 5 Mg Tablet 5 MG PO Q8H for Spasms, #15 TAB Prov: ELHAM DC DO 11/12/21 Naproxen (Naprosyn) 500 Mg Tablet 500 MG PO BID, #30 TAB 0 Refills Prov: ELHAM DC DO 11/12/21 ELHAM DC DO Nov 12, 2021 10:57
[2021-11-12] MEDS ORDERED: KETOROLAC 60 MG/2 ML VIAL IM STA (11:10)
[2021-11-12] MEDS ORDERED: ORPHENADRINE 60 MG/2 ML (NORFLEX) AMP (ED ONLY) IM STA (11:10)
[2021-11-12] MEDS ORDERED: BACL5TAB PO (11:31)
[2021-11-12] MEDS ORDERED: NAPR-1071 PO (11:31)
[2021-11-12 11:48] VITALS: BP 162/96
== END 2021-11-12 11:40 | disposition home or self-care (01) ==
LOC: EDUNIT# 10:48 → ER FS 10:50
DX: M62.830 Muscle spasm of back (principal); G89.29 Other chronic pain; E66.9 Obesity, unspecified; Z68.37 Body mass index [BMI] 37.0-37.9, adult
CPT/HCPCS: 96372; 99284

== ENCOUNTER 2022-04-21 18:15 | Emergency (ER) | payer SELFPAY ==
[~2022-04-21] VITALS: Ht 193 cm; Wt 160.0 kg
[~2022-04-21 18:15] MED LIST changes: +BACL5TAB PO; +PARO-124 PO; -PARO-49 PO
--- NOTE | 2022-04-21 18:29 | ED General ---
General Chief Complaint: General Problems/Pain Stated Complaint: HIGH BP, SOB,DIZZINESS WHILE WALKING Source of Information: Patient Exam Limitations: No Limitations History of Present Illness Date Seen by Provider: Apr 21, 2022 Time Seen by Provider: 18:17 Initial Comments 36-year-old male with a couple weeks of cough and congestion now feeling little bit short of breath and presented to the urgent care, his blood pressure was elevated there, so they referred him here. He does not take his blood pressure regularly, so he is unsure if he has high blood pressure. There is blood pressu re was 170/100 roughly. He only takes Paxil daily. Denies any prior history of DVT or PE, no lower extremity swelling or pain, no hemoptysis, no recent surgery, no hormone use, no chest pain, fever, nausea, vomiting, diarrhea, focal weakness or numbness, or any other concerns. He is a smoker. Allergies and Home Medications Allergies Coded Allergies: No Known Drug Allergies (Unverified , 05/21/16) Patient Home Medication List Home Medication List Reviewed: Yes Amoxicillin/Potassium Clav (Amox Tr-K Clv 875-125 mg Tab) 1 Each Tablet, 1 EACH PO BID Prescribed by: TACOS GALLEGO on 07/19/20 2305 Baclofen (Baclofen) 5 Mg Tablet, 5 MG PO Q8H Prescribed by: ELHAM DC on 11/12/21 1131 Cephalexin (Cephalexin) 500 Mg Tablet, 500 MG PO QID Prescribed by: ELHAM DC on 03/17/21 2313 Cyclobenzaprine HCl (Cyclobenzaprine HCl) 5 Mg Tablet, 5 MG PO TID PRN for PAIN- MILD TO MODERATE Prescribed by: DELMY HOWARD on 05/21/16 180 Cyclobenzaprine HCl (Cyclobenzaprine HCl) 5 Mg Tablet, 5 MG PO Q6H Prescribed by: STEPHANIE KEN MD on 10/26/21 225 Dicyclomine HCl (Dicyclomine HCl) 20 Mg Tablet, 20 MG PO QID PRN for abdominal cramping Prescribed by: TACOS GALLEGO on 08/11/20 1058 Ibuprofen (Ibuprofen) 800 Mg Tablet, 800 MG PO Q8H PRN for PAIN Prescribed by: TACOS GALLEGO on 07/19/20 2305 [place] Carbonate ([place] Carbonate ER) 450 Mg Tab, 450 MG PO TID, (Reported) Entered as Reported by: MADELYN CARROLL on 05/21/16 1658 Naproxen (Naprosyn) 500 Mg Tablet, 500 MG PO BID PRN for PAIN-MODERATE Prescribed by: DELMY HOWARD on 05/21/16 1806 Naproxen (Naprosyn) 500 Mg Tablet, 500 MG PO BID Prescribed by: ELHAM DC on 11/12/21 1131 Ondansetron (Ondansetron Odt) 4 Mg Tab.rapdis, 4 MG PO Q6H Prescribed by: SMITHA TOVAR on 06/11/20 0230 Ondansetron (Ondansetron Odt) 4 Mg Tab.rapdis, 4 MG PO Q6H PRN for NAUSEA/VOMITING Prescribed by: TACOS GALLEGO on 08/11/20 1058 Oxycodone HCl/Acetaminophen (Percocet 5-325 mg Tablet) 1 Each Tablet, 1 TAB PO Q4H Prescribed by: SMITHA TOVAR on 06/11/20 0230 Oxycodone HCl/Acetaminophen (Percocet 5-325 mg Tablet) 1 Each Tablet, 1 TAB PO Q4H Prescribed by: SMITHA TOVAR on 06/18/20 1713 Oxycodone HCl/Acetaminophen (Oxycodone-Acetaminophen 5-325) 1 Each Tablet, 1 EACH PO Q4H PRN for PAIN-SEVERE (8-10) Prescribed by: TACOS GALLEGO on 07/19/20 2306 Paroxetine HCl (Paxil) 20 Mg Tablet, 20 MG PO DAILY, (Reported) Entered as Reported by: MADELYN CARROLL on 05/21/16 165 Tamsulosin HCl (Flomax) 0.4 Mg Cap, 0.4 MG PO Q6H Prescribed by: SMITHA TOVAR on 06/11/20 0230 Review of Systems Review of Systems Constitutional: No fever EENTM: no symptoms reported Respiratory: cough, short of breath Cardiovascular: No chest pain Gastrointestinal: no symptoms reported Genitourinary: no symptoms reported Musculoskeletal: no symptoms reported Skin: no symptoms reported Psychiatric/Neurological: No Symptoms Reported Hematologic/Lymphatic: No Symptoms Reported Immunological/Allergic: no symptoms reported Past Patpzkb-Ythuuj-Xpzyjy Hx Patient Social History Tobacco Use?: Yes Tobacco type used: Cigarettes Smoking Status: Current Everyday Smoker Use of E-Cig and/or Vaping dev: Yes E-Cig or Vaping type used: Nicotine Use of E-Cig and/or Vaping Chris: Current Everyday User Substance use?: Yes Substance type: Marijuana Substance frequency: Daily Alcohol Use?: No Pt feels they are or have been: No Immunizations Up To Date First/Initial COVID19 Vaccinat: NA Second COVID19 Vaccination Sourav: NA Third COVID19 Vaccination Date: NA Seasonal Allergies Seasonal Allergies: No Past Medical History Surgery/Hospitalization HX: Left THR, Renal Calculi, ESWL Surgeries: Yes (LEFT HIP REPLACEMENT) Orthopedic Respiratory: No Cardiac: Yes Hypertension Neurological: No Reproductive Disorders: No Genitourinary: Yes Kidney Stones Gastrointestinal: No Musculoskeletal: Yes (LEFT HIP) Endocrine: No HEENT: No Cancer: No Psychosocial: Yes Bipolar, Depression Blood Disorders: No Family Medical History No Pertinent Family Hx Physical Exam Vital Signs Vital Signs - First Documented 04/21/22 18:31 Temp 36.4 Pulse 104 Resp 18 B/P (MAP) 168/89 (115) Pulse Ox 98 O2 Delivery Room Air Capillary Refill : Height, Weight, BMI Height: 6'3.00" Weight: 300lbs. oz. 136.284703wr; 37.00 BMI Method:Stated General Appearance: No Apparent Distress, WD/WN Eyes: Bilateral Eye Normal Inspection HEENT: PERRL/EOMI, Normal ENT Inspection, Pharynx Normal Neck: Full Range of Motion, Normal Inspection, Non Tender, Supple Respiratory: Chest Non Tender, Lungs Clear, Normal Breath Sounds, No Accessory Muscle Use, No Respiratory Distress Cardiovascular: Regular Rate, Rhythm, No Edema, Normal Peripheral Pulses Gastrointestinal: Normal Bowel Sounds, Non Tender, Soft; No Distended, No Guarding Back: Normal Inspection, No CVA Tenderness Extremity: Normal Capillary Refill, Normal Inspection, Normal Range of Motion, Non Tender, No Calf Tenderness, No Pedal Edema Neurologic/Psychiatric: Alert, No Motor/Sensory Deficits, Normal Mood/Affect Skin: Normal Color, Warm/Dry Procedures/Interventions Dental Procedures: Dental blk Progress/Results/Core Measures Suspected Sepsis SIRS Temperature: Pulse: Respiratory Rate: Laboratory Tests 04/21/22 18:22: White Blood Count 13.1H Blood Pressure / Mean: Laboratory Tests 04/21/22 18:22: Creatinine 0.77, INR Comment 0.9, Platelet Count 258, Total Bilirubin 0.3 Results/Orders Lab Results Laboratory Tests Test 04/21/22 18:22 Range/Units White Blood Count 13.1 H 4.3-11.0 10^3/uL Red Blood Count 5.53 H 4.30-5.52 10^6/uL Hemoglobin 16.7 13.3-17.7 g/dL Hematocrit 49 40-54 % Mean Corpuscular Volume 88 80-99 fL Mean Corpuscular Hemoglobin 30 25-34 pg Mean Corpuscular Hemoglobin Concent 34 32-36 g/dL Red Cell Distribution Width 13.5 10.0-14.5 % Platelet Count 258 130-400 10^3/uL Mean Platelet Volume 10.5 9.0-12.2 fL Immature Granulocyte % (Auto) 0 % Neutrophils (%) (Auto) 62 42-75 % Lymphocytes (%) (Auto) 28 12-44 % Monocytes (%) (Auto) 6 0-12 % Eosinophils (%) (Auto) 3 0-10 % Basophils (%) (Auto) 1 0-10 % Neutrophils # (Auto) 8.1 H 1.8-7.8 10^3/uL Lymphocytes # (Auto) 3.7 1.0-4.0 10^3/uL Monocytes # (Auto) 0.8 0.0-1.0 10^3/uL Eosinophils # (Auto) 0.4 H 0.0-0.3 10^3/uL Basophils # (Auto) 0.1 0.0-0.1 10^3/uL Immature Granulocyte # (Auto) 0.1 0.0-0.1 10^3/uL Prothrombin Time 12.4 12.2-14.7 SEC INR Comment 0.9 0.8-1.4 Activated Partial Thromboplast Time 28 24-35 SEC Sodium Level 136 135-145 MMOL/L Potassium Level 4.1 3.6-5.0 MMOL/L Chloride Level 100 98-107 MMOL/L Carbon Dioxide Level 22 21-32 MMOL/L Anion Gap 14 5-14 MMOL/L Blood Urea Nitrogen 13 7-18 MG/DL Creatinine 0.77 0.60-1.30 MG/DL Estimat Glomerular Filtration Rate 120 BUN/Creatinine Ratio 17 Glucose Level 211 H 70-105 MG/DL Calcium Level 9.7 8.5-10.1 MG/DL Corrected Calcium 9.3 8.5-10.1 MG/DL Magnesium Level 1.8 1.6-2.4 MG/DL Total Bilirubin 0.3 0.1-1.0 MG/DL Aspartate Amino Transf (AST/SGOT) 35 H 5-34 U/L Alanine Aminotransferase (ALT/SGPT) 69 H 0-55 U/L Alkaline Phosphatase 130 40-136 U/L Troponin I < 0.30 <0.30 NG/ML Pro-B-Type Natriuretic Peptide < 36.0 <125.0 PG/ML Total Protein 8.0 6.4-8.2 GM/DL Albumin 4.5 3.2-4.5 GM/DL Lipase 16 8-78 U/L My Orders Orders - SOFIA ERIC MD Cbc With Automated Diff (04/21/22 18:25) Magnesium (04/21/22 18:25) Ekg Tracing (04/21/22 18:25) Comprehensive Metabolic Panel (04/21/22 18:) Protime With Inr (04/21/22 18:) Partial Thromboplastin Time (04/21/22 18:25) O2 (04/21/22 18:25) Monitor-Rhythm Ecg Trace Only (04/21/22 18:25) Ed Iv/Invasive Line Start (04/21/22 18:25) Lipase (04/21/22 18:25) Troponin I Fs (04/21/22 18:25) Probnp Fs (04/21/22 18:25) Albuterol/Ipra Inhalation Soln (Duoneb I (04/21/22 18:30) Chest Pa/Lat (2 View) (04/21/22 18:25) Medications Given in ED Current Medications Medications Dose Ordered Sig/Marquita Route Start Time Stop Time Status Last Admin Dose Admin Albuterol/ Ipratropium 3 ml ONCE ONCE IH 04/21/22 18:30 04/21/22 18:31 DC 04/21/22 18:29 3 ML Vital Signs/I&O 04/21/22 18:31 Temp 36.4 Pulse 104 Resp 18 B/P (MAP) 168/89 (115) Pulse Ox 98 O2 Delivery Room Air Capillary Refill : Progress Note : Progress Note 36-year-old male with above history coming in due to 2 weeks of cough and congestion with shortness of breath. ABCs were intact and vitals were stable on presentation. Upon resting his blood pressure was 153/89, although elevated, certainly not something that I would want to immediately intervene on. I suspect the patient does have chronically elevated blood pressure and does need to be put on medications, but will need more data points to decide that. I will have him follow-up with his PCP and keep a blood pressure log regarding this. EKG obtained and interpreted by me showing no acute ischemic changes. He is otherwise low risk for PE by [place] criteria and not showing any clinical signs of a DVT at this time. An IV was placed and basic labs were obtained including cardiac biomarkers. Chest x-ray also ordered and interpreted by me showing no obvious pneumonia, no pneumothorax, normal cardiac silhouette. Labs significant for slightly elevated white blood cell count which would fit a viral infection, negative troponin, normal BNP, normal creatinine. Patient continues to be well-appearing and blood pressure appropriate for outpatient management. On reassessment, lungs sound clear, breathing comfortably, oxygen greater than 98% on room air. I believe he stable for discharge with outpatient follow-up. He was sent home with strict return precautions. ECG Initial ECG Impression Date: Apr 21, 2022 Initial ECG Impression Time: 18:37 Initial ECG Rate: 97 Initial ECG Rhythm: Normal Sinus Comment Narrow QRS, normal axis, no significant ST changes or T wave abnormalities Diagnostic Imaging Diagonstic Imaging: Xray (2 view chest) Comments NAME: [facility] REC#: [id number] PT STATUS: REG ER : 1985 PHYSICIAN: SOFIA ERIC MD ADMIT DATE: 04/21/22/ER FS Signed Date of Exam:04/21/22 CHEST PA/LAT (2 VIEW) CHEST PA/LAT (2 VIEW) Indication: Shortness of breath Comparison: None available Findings: No pulmonary mass or consolidation. No pleural effusion or pneumothorax. Normal heart size and mediastinal contours. Impression: No acute cardiopulmonary process. Dictated by: Dictated on workstation # [id number] Dict: 04/21/221848 Trans: 04/21/221848 [facility] [id number] Interpreted by: RONNA WHITLOCK MD Electronically signed by: RONNA WHITLOCK MD 03/15/23 1849 Departure Impression Primary Impression: Shortness of breath Additional Impression: Hypertension Qualified Codes: I10 - Essential (primary) hypertension Disposition: 01 HOME, SELF-CARE Condition: Stable Departure-Patient Inst. Decision time for Depature: 19:20 Referrals: SHIRIN CHIN (PCP) Primary Care Physician JOSE ALBERTO WHITE MD (Family) Primary Care Physician Patient Instructions: Shortness of Breath, Adult ED Add. Discharge Instructions: Your blood pressure was closer to 140s over 80s in the ER which is still elevated. I want you to get a blood pressure cuff at the store, take it at least once a day and write it down in a journal. Take this to your regular doctor after a couple weeks. Do not fixate on the numbers, just write it down and move on. If you have severe chest pain, severe shortness of breath, or any other concerns then please call your doctor sooner. Your chest x-ray today did not show any evidence of infection. Work/School Note: Work Release Form Date Seen in the Emergency Department: Apr 21, 2022 Return to Work: Apr 23, 2022 Restrictions: No Restrictions SOFIA ERIC MD Apr 21, 2022 18:29
[2022-04-21] MEDS ORDERED: RT-ALBUTEROL/IPRATROPIUM 3 ML (DUONEB) VIAL IH ONE (18:30)
[2022-04-21 18:31] LABS: BASOPHILS # (AUTO) 0.1 10^3/uL (0.0-0.1); BASOPHILS % (AUTO) 1 % (0-10); EOSINOPHILS # (AUTO) 0.4 10^3/uL (0.0-0.3); EOSINOPHILS % (AUTO) 3 % (0-10); HEMATOCRIT 49 % (40-54); HEMOGLOBIN 16.7 g/dL (13.3-17.7); LYMPHOCYTES # (AUTO) 3.7 10^3/uL (1.0-4.0); LYMPHOCYTES % (AUTO) 28 % (12-44); MEAN CORPUSCULAR HEMOGLOBIN 30 pg (25-34); MEAN CORPUSCULAR HGB CONC 34 g/dL (32-36); MEAN CORPUSCULAR VOLUME 88 fL (80-99); MEAN PLATELET VOLUME 10.5 fL (9.0-12.2); MONOCYTES # (AUTO) 0.8 10^3/uL (0.0-1.0); MONOCYTES % (AUTO) 6 % (0-12); NEUTROPHILS # (AUTO) 8.1 10^3/uL (1.8-7.8); NEUTROPHILS % (AUTO) 62 % (42-75); PLATELET COUNT 258 10^3/uL (130-400); WHITE BLOOD COUNT 13.1 10^3/uL (4.3-11.0)
--- NOTE | 2022-04-21 18:50 | Diagnostic Imaging Report ---
CHEST PA/LAT (2 VIEW) Indication: Shortness of breath Comparison: None available Findings: No pulmonary mass or consolidation. No pleural effusion or pneumothorax. Normal heart size and mediastinal contours. Impression: No acute cardiopulmonary process. Dictated by: Dictated on workstation # [id number]
[2022-04-21 18:58] LABS: INR 0.9 (0.8-1.4); PROTHROMBIN TIME PATIENT 12.4 SEC (12.2-14.7)
[2022-04-21 19:03] LABS: CALCIUM 9.7 MG/DL (8.5-10.1); CREATININE SERUM 0.77 MG/DL (0.60-1.30); POTASSIUM 4.1 MMOL/L (3.6-5.0)
[2022-04-21 19:04] LABS: ALBUMIN 4.5 GM/DL (3.2-4.5); BILIRUBIN,TOTAL 0.3 MG/DL (0.1-1.0); MAGNESIUM 1.8 MG/DL (1.6-2.4)
[2022-04-21 19:25] VITALS: BP 155/84
== END 2022-04-21 19:25 | disposition home or self-care (01) ==
LOC: EDUNIT# 18:15 → ER FS 18:17
DX: I10 Essential (primary) hypertension (principal); D72.829 Elevated white blood cell count, unspecified; F17.210 Nicotine dependence, cigarettes, uncomplicated; F17.290 Nicotine dependence, other tobacco product, uncomplicated; Z28.310 Unvaccinated for COVID-19
CPT/HCPCS: 36415; 71046; 80053; 83690; 83735; 83880; 84484; 85025; 85610; 85730; 93005; 93041

== ENCOUNTER 2022-05-11 09:06 | Emergency (ER) | payer SELFPAY ==
[2022-05-11 09:30] VITALS: BP 146/102
[2022-05-11 09:50] LABS: BASOPHILS # (AUTO) 0.1 10^3/uL (0.0-0.1); BASOPHILS % (AUTO) 0 % (0-10); EOSINOPHILS # (AUTO) 0.3 10^3/uL (0.0-0.3); EOSINOPHILS % (AUTO) 2 % (0-10); HEMATOCRIT 48 % (40-54); HEMOGLOBIN 16.4 g/dL (13.3-17.7); LYMPHOCYTES # (AUTO) 2.6 10^3/uL (1.0-4.0); LYMPHOCYTES % (AUTO) 20 % (12-44); MEAN CORPUSCULAR HEMOGLOBIN 31 pg (25-34); MEAN CORPUSCULAR HGB CONC 35 g/dL (32-36); MEAN CORPUSCULAR VOLUME 89 fL (80-99); MEAN PLATELET VOLUME 10.9 fL (9.0-12.2); MONOCYTES # (AUTO) 0.9 10^3/uL (0.0-1.0); MONOCYTES % (AUTO) 7 % (0-12); NEUTROPHILS # (AUTO) 9.5 10^3/uL (1.8-7.8); NEUTROPHILS % (AUTO) 71 % (42-75); PLATELET COUNT 168 10^3/uL (130-400); WHITE BLOOD COUNT 13.4 10^3/uL (4.3-11.0)
--- NOTE | 2022-05-11 09:52 | ED Psychosocial ---
General Chief Complaint: Psych/Social Disorder Stated Complaint: MENTAL HEALTH EVAL Source: patient History of Present Illness Date Seen by Provider: May 11, 2022 Time Seen by Provider: 09:09 Initial Comments 36-year-old male presenting to the emergency department for mental health evaluation. He states for at least the last 1 to 2 weeks ever since he ran out of his Paxil for depression and anxiety that he has had increased suicidal thoughts. He had a plan of using a knife blade to cut himself and bleed out. He presented the knife blade here in the emergency department when asked about his plan. He denies taking anything or doing anything to physically harm himself yet but has been having suicidal thoughts. He feels like the Paxil has not been helping at him and he becomes tearful stating he just wants a medicine that will work and he wants to go home and go to sleep. He has had a previous suicide attempt and [facility] [place] [facility] 10 [facility]. He is currently on parole and had us call his banking services officer to let them know he had presented to the ED for mental health evaluation. Timing/Duration: week (last 1-2 weeks since he ran out of Paxil, but felt Paxil was not helping him anymore when he took it so was concerned he needed something different.), getting worse Severity: severe Associated Symptoms: anxiety, suicidal ideation Allergies and Home Medications Allergies Coded Allergies: No Known Drug Allergies (Unverified , 05/21/16) Patient Home Medication List Home Medication List Reviewed: Yes Amoxicillin/Potassium Clav (Amox Tr-K Clv 875-125 mg Tab) 1 Each Tablet, 1 EACH PO BID Prescribed by: TACOS GALLEGO on 07/19/20 2305 Baclofen (Baclofen) 5 Mg Tablet, 5 MG PO Q8H Prescribed by: ELHAM DC on 11/12/21 1131 Cephalexin (Cephalexin) 500 Mg Tablet, 500 MG PO QID Prescribed by: ELHAM DC on 03/17/21 2313 Cyclobenzaprine HCl (Cyclobenzaprine HCl) 5 Mg Tablet, 5 MG PO TID PRN for PAIN- MILD TO MODERATE Prescribed by: DELMY HOWARD on 05/21/16 1806 Cyclobenzaprine HCl (Cyclobenzaprine HCl) 5 Mg Tablet, 5 MG PO Q6H Prescribed by: STEPHANIE KEN MD on 10/26/21 2251 Dicyclomine HCl (Dicyclomine HCl) 20 Mg Tablet, 20 MG PO QID PRN for abdominal cramping Prescribed by: TACOS GALLEGO on 08/11/20 105 Ibuprofen (Ibuprofen) 800 Mg Tablet, 800 MG PO Q8H PRN for PAIN Prescribed by: TACOS GALLEGO on 07/19/20 2305 [place] Carbonate ([place] Carbonate ER) 450 Mg Tab, 450 MG PO TID, (Reported) Entered as Reported by: MADELYN CARROLL on 05/21/16 165 Naproxen (Naprosyn) 500 Mg Tablet, 500 MG PO BID PRN for PAIN-MODERATE Prescribed by: DELMY HOWARD on 05/21/16 1806 Naproxen (Naprosyn) 500 Mg Tablet, 500 MG PO BID Prescribed by: ELHAM DC on 11/12/21 1131 Ondansetron (Ondansetron Odt) 4 Mg Tab.rapdis, 4 MG PO Q6H Prescribed by: SMITHA TOVAR on 06/11/20 0230 Ondansetron (Ondansetron Odt) 4 Mg Tab.rapdis, 4 MG PO Q6H PRN for NAUSEA/V OMITING Prescribed by: TACOS GALLEGO on 08/11/20 105 Oxycodone HCl/Acetaminophen (Percocet 5-325 mg Tablet) 1 Each Tablet, 1 TAB PO Q4H Prescribed by: SMITHA TOVAR on 06/11/20 0230 Oxycodone HCl/Acetaminophen (Percocet 5-325 mg Tablet) 1 Each Tablet, 1 TAB PO Q4H Prescribed by: SMITHA TOVAR on 06/18/20 1713 Oxycodone HCl/Acetaminophen (Oxycodone-Acetaminophen 5-325) 1 Each Tablet, 1 EACH PO Q4H PRN for PAIN-SEVERE (8-10) Prescribed by: TACOS GALLEGO on 07/19/20 230 Paroxetine HCl (Paxil) 20 Mg Tablet, 20 MG PO DAILY, (Reported) Entered as Reported by: MADELYN CARROLL on 05/21/16 165 Tamsulosin HCl (Flomax) 0.4 Mg Cap, 0.4 MG PO Q6H Prescribed by: SMITHA TOVAR on 06/11/20 0230 Review of Systems Constitutional: No chills, No fever EENTM: no symptoms reported Respiratory: no symptoms reported Cardiovascular: no symptoms reported Gastrointestinal: no symptoms reported Genitourinary: no symptoms reported Musculoskeletal: no symptoms reported Skin: no symptoms reported Psychiatric/Neurological: Anxiety, Depressed, Emotional Problems Past Gzsscib-Mxdegj-Lumkng Hx Patient Social History Tobacco Use?: Yes Substance use?: Yes Substance type: Marijuana Alcohol Use?: Yes Immunizations Up To Date First/Initial COVID19 Vaccinat: NA Second COVID19 Vaccination Sourav: NA Third COVID19 Vaccination Date: NA Seasonal Allergies Seasonal Allergies: No Past Medical History Surgery/Hospitalization HX: Left THR, Renal Calculi, ESWL Surgeries: Yes (LEFT HIP REPLACEMENT) Orthopedic Respiratory: No Cardiac: Yes Hypertension Neurological: No Reproductive Disorders: No Genitourinary: Yes Kidney Stones Gastrointestinal: No Musculoskeletal: Yes (LEFT HIP) Endocrine: No HEENT: No Cancer: No Psychosocial: Yes Bipolar, Depression Blood Disorders: No Family Medical History No Pertinent Family Hx Physical Exam Vital Signs - First Documented 05/11/22 09:30 Temp 36.2 Pulse 91 Resp 16 B/P (MAP) 146/102 (117) Pulse Ox 96 O2 Delivery Room Air Capillary Refill : Height, Weight, BMI Height: 6'3.00" Weight: 300lbs. oz. [id number]; 42.00 BMI Method:Stated General Appearance: obese, other (Becomes tearful when talking about mental health and suicidal thoughts. Poor personal hygiene and disheveled appearance.) HEENT: PERRL/EOMI, pharynx normal Neck: non-tender, full range of motion, supple, normal inspection Respiratory: chest non-tender, lungs clear, normal breath sounds, no respiratory distress, no accessory muscle use Cardiovascular: normal peripheral pulses, regular rate, rhythm Gastrointestinal: normal bowel sounds, non tender, soft, no pulsatile mass Extremities: normal range of motion, non-tender, normal capillary refill Neurologic/Psychiatric: alert, oriented x 3 Appearance/Memory: disheveled Behavior/Eye Contact: cooperative, avoids eye contact Thoughts/Hallucinations: no apparent hallucination Skin: normal color, warm/dry Procedures/Interventions Dental Procedures: Dental blk Progress/Results/Core Measures Results/Orders Lab Results Laboratory Tests Test 05/11/22 09:13 05/11/22 09:26 Range/Units Urine Color YELLOW Urine Clarity CLEAR Urine pH 6.0 5-9 Urine Specific [place] >=1.030 1.016-1.022 Urine Protein TRACE H NEGATIVE Urine Glucose (UA) NEGATIVE NEGATIVE Urine Ketones NEGATIVE NEGATIVE Urine Nitrite NEGATIVE NEGATIVE Urine Bilirubin 1+ H NEGATIVE Urine Urobilinogen 2.0 < = 1.0 MG/DL Urine Leukocyte Esterase NEGATIVE NEGATIVE Urine RBC (Auto) NEGATIVE NEGATIVE Urine RBC RARE /HPF Urine WBC 0-2 /HPF Urine Squamous Epithelial Cells NONE /HPF Urine Crystals NONE /LPF Urine Bacteria NEGATIVE /HPF Urine Casts NONE /LPF Urine Mucus MODERATE H /LPF Urine Culture Indicated NO Urine Opiates Screen NEGATIVE NEGATIVE Urine Oxycodone Screen NEGATIVE NEGATIVE Urine Methadone Screen NEGATIVE NEGATIVE Urine Propoxyphene Screen NEGATIVE NEGATIVE Urine Barbiturates Screen NEGATIVE NEGATIVE Ur Tricyclic Antidepressants Screen NEGATIVE NEGATIVE Urine Phencyclidine Screen NEGATIVE NEGATIVE Urine Amphetamines Screen NEGATIVE NEGATIVE Urine Methamphetamines Screen NEGATIVE NEGATIVE Urine Benzodiazepines Screen NEGATIVE NEGATIVE Urine Cocaine Screen NEGATIVE NEGATIVE Urine Cannabinoids Screen POSITIVE H NEGATIVE White Blood Count 13.4 H 4.3-11.0 10^3/uL Red Blood Count 5.37 4.30-5.52 10^6/uL Hemoglobin 16.4 13.3-17.7 g/dL Hematocrit 48 40-54 % Mean Corpuscular Volume 89 80-99 fL Mean Corpuscular Hemoglobin 31 25-34 pg Mean Corpuscular Hemoglobin Concent 35 32-36 g/dL Red Cell Distribution Width 14.1 10.0-14.5 % Platelet Count 168 130-400 10^3/uL Mean Platelet Volume 10.9 9.0-12.2 fL Immature Granulocyte % (Auto) 0 % Neutrophils (%) (Auto) 71 42-75 % Lymphocytes (%) (Auto) 20 12-44 % Monocytes (%) (Auto) 7 0-12 % Eosinophils (%) (Auto) 2 0-10 % Basophils (%) (Auto) 0 0-10 % Neutrophils # (Auto) 9.5 H 1.8-7.8 10^3/uL Lymphocytes # (Auto) 2.6 1.0-4.0 10^3/uL Monocytes # (Auto) 0.9 0.0-1.0 10^3/uL Eosinophils # (Auto) 0.3 0.0-0.3 10^3/uL Basophils # (Auto) 0.1 0.0-0.1 10^3/uL Immature Granulocyte # (Auto) 0.0 0.0-0.1 10^3/uL Sodium Level 135 135-145 MMOL/L Potassium Level 3.9 3.6-5.0 MMOL/L Chloride Level 101 98-107 MMOL/L Carbon Dioxide Level 20 L 21-32 MMOL/L Anion Gap 14 5-14 MMOL/L Blood Urea Nitrogen 12 7-18 MG/DL Creatinine 0.74 0.60-1.30 MG/DL Estimat Glomerular Filtration Rate 122 BUN/Creatinine Ratio 16 Glucose Level 142 H 70-105 MG/DL Calcium Level 9.6 8.5-10.1 MG/DL Corrected Calcium 9.3 8.5-10.1 MG/DL Total Bilirubin 0.7 0.1-1.0 MG/DL Aspartate Amino Transf (AST/SGOT) 30 5-34 U/L Alanine Aminotransferase (ALT/SGPT) 48 0-55 U/L Alkaline Phosphatase 104 40-136 U/L Total Protein 7.8 6.4-8.2 GM/DL Albumin 4.4 3.2-4.5 GM/DL Salicylates Level < 5.0 L 5.0-20.0 MG/DL Acetaminophen Level < 10 L 10-30 UG/ML Serum Alcohol < 10 <10 MG/DL My Orders Orders - TACOS GALLEGO MD Ua Culture If Indicated (05/11/22 09:44) Cbc With Automated Diff (05/11/22 09:44) Comprehensive Metabolic Panel (05/11/22 09:44) Alcohol (05/11/22 09:44) Drug Screen Stat (Urine) (05/11/22 09:44) Acetaminophen (05/11/22 09:44) Salicylate (05/11/22 09:44) Ekg Tracing (05/11/22 09:44) Bh Status Checks/Observation O Q15M (05/11/22 09:44) Vital Signs/I&O Progress Progress Note #1: Progress Note Potential diagnosis of depression with suicidal ideation, prior suicide attempt, increased risk of self-harm, major depression, situational factors worsening his mental health. As I was talking to the patient and asked if he had a plan when he admits to being suicidal and thoughts of self harm, he responded "something". When I asked him to clarify when he says "something" what that means and if he had a specific plan or had done anything to hurt himself and he pulled a broken knife blade from his pocket and handed it to me. He became more tearful as he released possession of the blade to me. I told him I would put it someplace secure and then come back to finish my physical exam. I placed it in a [employer] waste bag and labeled it with a sticker from today's visit. I then placed this in our safe to secure it from the patient. The rest of physical exam was as documented. Obtain complete blood count, comprehensive metabolic profile, urinalysis, urine drug screen, alcohol, acetaminophen, salicylate levels. Will obtain an electrocardiogram, to document his heart rate and rhythm and in case he would require medications we will know what his QT interval is for him. Will contact [facility] to let them know he needs a mental health screening/evaluation. Patient was placed in continuous monitoring for his safety as he is a high risk patient based on his suicidal thoughts, plan of cutting himself and having the knife blade with him when he presented to the ED, and having prior attempt with hospitalization around 2012. Will find a sitter to help monitor the patient on a 1:1 basis. Progress Note #2: Time: 10:24 Progress Note Complete blood count shows mild elevation of his white blood cell count to 13.4 thousand. He had a normal differential. This might be more of a stress reaction. His hemoglobin was slightly elevated to 16.4 and he had normal platelets at 168. His urinalysis did not show infection but did appear that he was slightly dry as his urine specific gravity was greater than 1.030. His urine drug screen had THC present. Comprehensive metabolic profile and alcohol, salicylate, acetaminophen levels were pending. Lab reported that they were having issues with their device and may have to send the specimen to [place] to have the lab run it there. 1030 ECG shows sinus rhythm with out ST elevation or ischemic changes. His QT interval was not prolonged. 1041 Comprehensive Metabolic Profile shows mild elevation of glucose to 142 but otherwise no acute electrolyte imbalance, renal failure or hepatic failure. No elevation of liver function tests. ETOH, Salicylate and Acetaminophen levels still pending. Patient medically clear and stable for mental health evaluation. Progress Note #3: Time: 12:30 Progress Note [facility] called after they had spoken with patient and significant other. They have come to an agreed safety plan and will discharge patient to home. Will have patient follow safety plan as agreed upon and follow up with [facility]. Initial ECG Impression Date: May 11, 2022 Initial ECG Impression Time: 10:30 Initial ECG Rate: 81 Initial ECG Rhythm: Normal Sinus Initial ECG Comparisson: Unchanged (04/21/2022) Comment On my personal interpretation and review of his electrocardiogram shows a sinus rhythm with a heart rate of 81 bpm. NC interval [address] elevation. QT interval 363 ms with a QTc interval 400 ms. There is no acute significant difference or change from prior tracing done April 21, 2022. Departure Impression Primary Impression: Depression with suicidal ideation Disposition: HOME, SELF-CARE Condition: Stable Departure-Patient Inst. Decision time for Depature: 12:43 Referrals: SHIRIN CHIN (PCP/Family) Primary Care Physician Patient Instructions: Depression, Adult ED, Tips for How to Help Your Mood, Suicide Prevention Add. Discharge Instructions: Follow up with [facility] and follow safety plan as agreed upon with the [facility] staff All discharge instructions reviewed with patient and/or family. Voiced und erstanding. TACOS GALLEGO MD May 11, 2022 09:52
[2022-05-11 09:53] LABS: CLARITY,URINE CLEAR; COLOR,URINE YELLOW; GLUCOSE, URINE (UA) NEGATIVE (NEGATIVE); KETONES,URINE NEGATIVE (NEGATIVE); LEUKOCYTE ESTERASE ,URINE NEGATIVE (NEGATIVE); NITRITE,URINE NEGATIVE (NEGATIVE); PROTEIN,URINE TRACE (NEGATIVE)
[2022-05-11 10:07] LABS: CANNABINOID SCREEN, URINE POSITIVE (NEGATIVE)
[2022-05-11 10:08] LABS: AMPHETAMINE SCREEN, URINE NEGATIVE (NEGATIVE); BACTERIA,URINE NEGATIVE /HPF; BARBITURATE SCREEN URINE NEGATIVE (NEGATIVE); BENZODIAZEPINES SCREEN URINE NEGATIVE (NEGATIVE); COCAINE SCREEN URINE NEGATIVE (NEGATIVE); METHADONE STAT NEGATIVE (NEGATIVE); OPIATE SCREEN URINE NEGATIVE (NEGATIVE); OXYCODONE STAT NEGATIVE (NEGATIVE); PROPOXYPHENE STAT NEGATIVE (NEGATIVE); RBC,URINE RARE /HPF; TRICYCLIC ANTIDEPRESSANTS SCRE NEGATIVE (NEGATIVE); WBC,URINE 0-2 /HPF
[2022-05-11 10:10] LABS: BILIRUBIN,URINE 1+ (NEGATIVE)
[2022-05-11 10:34] LABS: CHLORIDE 101 MMOL/L (98-107); POTASSIUM 3.9 MMOL/L (3.6-5.0); SODIUM 135 MMOL/L (135-145)
[2022-05-11 10:35] LABS: ALANINE AMINOTRANSFERASE 48 U/L (0-55); ALKALINE PHOSPHATASE 104 U/L (40-136); BILIRUBIN,TOTAL 0.7 MG/DL (0.1-1.0); BUN/CREATININE RATIO 16; CALCIUM 9.6 MG/DL (8.5-10.1); CARBON DIOXIDE 20 MMOL/L (21-32); CREATININE SERUM 0.74 MG/DL (0.60-1.30); GFR ESTIMATED 122; GLUCOSE 142 MG/DL (70-105)
[2022-05-11 10:36] LABS: ALBUMIN 4.4 GM/DL (3.2-4.5); TOTAL PROTEIN 7.8 GM/DL (6.4-8.2)
[2022-05-11 12:27] LABS: ACETAMINOPHEN < 10 UG/ML (10-30); SALICYLATE < 5.0 MG/DL (5.0-20.0)
== END 2022-05-11 12:48 | disposition home or self-care (01) ==
LOC: EDUNIT# 09:06 → ER FS 09:09
DX: F32.A Depression, unspecified (principal); F41.9 Anxiety disorder, unspecified; D72.829 Elevated white blood cell count, unspecified; D58.2 Other hemoglobinopathies; E66.9 Obesity, unspecified; Z79.899 Other long term (current) drug therapy; Z68.41 Body mass index [BMI] 40.0-44.9, adult; Z28.310 Unvaccinated for COVID-19
CPT/HCPCS: 36415; 80053; 80306; 81000; 85025; 93005; 99284; G0480 ×3; 80320; 80329